=== PATIENT | male | born 1965 | race Hispanic/Latino ===

== ENCOUNTER 2017-08-15 20:17 | Emergency (ER) | payer SELFPAY ==
[2017-08-15 21:02] LABS: APPEARANCE,URINE Clear (CLEAR); BILIRUBIN,URINE Negative (NEGATIVE); COLOR,URINE Yellow (YELLOW); GLUCOSE, URINE (UA) Negative (NEGATIVE); KETONES,URINE Negative (NEGATIVE); LEUKOCYTE ESTERASE ,URINE Negative (NEGATIVE); NITRATE,URINE Negative (NEGATIVE); OCCULT BLOOD,URINE Negative (NEGATIVE); PROTEIN,URINE Negative (NEGATIVE)
[2017-08-15 21:03] LABS: BASOPHILS % (AUTO) 0.6 % (0.0-5.0); EOSINOPHILS % (AUTO) 2.3 % (0.0-8.0); HEMATOCRIT 43.4 % (42-54); LYMPHOCYTES % (AUTO) 46.4 % (21.0-51.0); MEAN CORPUSCULAR HEMOGLOBIN 30.3 pg (27.0-33.0); MEAN CORPUSCULAR HGB CONC 34.3 g/dL (32.0-36.0); MEAN CORPUSCULAR VOLUME 88.3 fL (79-99); MONOCYTES % (AUTO) 7.5 % (3.0-13.0); NEUTROPHILS % (AUTO) 43.2 % (40.0-77.0); NUCLEATED RED BLOOD CELLS 0.1 % (0.0-0.19); PLATELET COUNT (AUTO) 153 K/uL (130-400); RED BLOOD CELL COUNT(AUTO) 4.92 MIL/uL (4.50-6.20); RED CELL DISTRIBUTION WIDTH 13.6 % (11.0-15.5); WHITE BLOOD COUNT (AUTO) 8.2 K/uL (4.8-10.8)
[2017-08-15 21:10] LABS: AMPHET/METH SCREEN,URINE NEGATIVE (NEGATIVE); BARBITURATE SCREEN, URINE NEGATIVE (NEGATIVE); BENZODIAZEPINES SCREEN,URINE NEGATIVE (NEGATIVE); CANNABINOID SCREEN,URINE NEGATIVE (NEGATIVE); COCAINE SCREEN,URINE POSITIVE (NEGATIVE); OPIATE SCREEN,URINE NEGATIVE (NEGATIVE); PHENCYCLIDINE SCREEN,URINE NEGATIVE (NEGATIVE)
[2017-08-15 21:12] LABS: CARBON DIOXIDE 31 mmol/L (21-32); CHLORIDE 110 mmol/L (101-111); CREATININE 0.9 mg/dL (0.5-1.5); GLOMERULAR FILTR. RATE CALC 95 mL/min (>60); GLUCOSE,RANDOM 96 mg/dL (70-105); POTASSIUM 3.9 mmol/L (3.5-5.1); SODIUM SERUM 147 mmol/L (136-145); UREA NITROGEN, BLOOD 7 mg/dL (7-18)
[2017-08-15 21:17] LABS: ALANINE AMINOTRANSFERASE 265 U/L (12-78); ALBUMIN 3.4 g/dL (3.5-5.0); ASPARTATE AMINOTRANSFERASE 158 U/L (10-37); BILIRUBIN,TOTAL 0.5 mg/dL (0.2-1.0); SALICYLATE 2.9 mg/dL (2.8-20.0); TOTAL PROTEIN, SERUM 6.8 g/dL (6.0-8.3)
[2017-08-15 21:18] LABS: ACETAMINOPHEN < 1 mcg/mL (10-29)
== END 2017-08-15 21:40 | disposition home or self-care (01) ==
LOC: EDH 20:17
DX: F14.10 Cocaine abuse, uncomplicated (principal); F10.10 Alcohol abuse, uncomplicated; F41.9 Anxiety disorder, unspecified; F32.9 Major depressive disorder, single episode, unspecified; F20.9 Schizophrenia, unspecified; I10 Essential (primary) hypertension; E11.9 Type 2 diabetes mellitus without complications; Z86.19 Personal history of other infectious and parasitic diseases
CPT/HCPCS: 36415; 80053; 80305; 81003; 85025; 99284; G0480 ×2; G0481

== ENCOUNTER 2021-12-29 19:39 | Emergency (ER) | payer OTHER ==
[2021-12-29] MEDS ORDERED: 0.9%NACL 1000ML 1,000 ML IV ONE (20:37)
[2021-12-29 20:51] LABS: BASOPHILS % (AUTO) 0.6 % (0.0-5.0); EOSINOPHILS % (AUTO) 1.7 % (0.0-8.0); HEMATOCRIT 42.4 % (42-54); LYMPHOCYTES % (AUTO) 26.4 % (21.0-51.0); MEAN CORPUSCULAR HGB CONC 33.7 g/dL (32.0-36.0); MEAN CORPUSCULAR VOLUME 88.9 fL (79-99); MONOCYTES % (AUTO) 6.5 % (3.0-13.0); PLATELET COUNT (AUTO) 134 K/uL (130-400); RED BLOOD CELL COUNT(AUTO) 4.77 MIL/uL (4.50-6.20); RED CELL DISTRIBUTION WIDTH 13.3 % (11.0-15.5); WHITE BLOOD COUNT (AUTO) 7.3 K/uL (4.8-10.8)
[2021-12-29 20:53] LABS: APPEARANCE,URINE Clear (CLEAR); BILIRUBIN,URINE Negative (NEGATIVE); COLOR,URINE Yellow (YELLOW); GLUCOSE, URINE (UA) Negative (NEGATIVE); KETONES,URINE Negative (NEGATIVE); LEUKOCYTE ESTERASE ,URINE Negative (NEGATIVE); NITRATE,URINE Negative (NEGATIVE); OCCULT BLOOD,URINE Negative (NEGATIVE); PH,URINE 5.5 (5.0-8.0); PROTEIN,URINE Negative (NEGATIVE); UROBILINOGEN,URINE 0.2 mg/dL (0.2-1.0)
[2021-12-29 21:01] LABS: POTASSIUM 4.1 mmol/L (3.5-5.1)
[2021-12-29 21:03] LABS: INR 1.12 (0.85-1.15); PROTHROMBIN TIME 12.1 SEC (9.6-11.6)
[2021-12-29 21:04] LABS: PARTIAL THROMBOPLASTIN TIME 26.5 SEC (26.3-35.5)
[2021-12-29 21:06] LABS: ALBUMIN 3.4 g/dL (3.5-5.0); BILIRUBIN,TOTAL 0.5 mg/dL (0.2-1.0); TOTAL PROTEIN, SERUM 6.9 g/dL (6.0-8.3)
[2021-12-29] MEDS ORDERED: HYDROCODONE/ACETAMINOPHEN 10/325 MG TAB PO ONE (23:00)
[2021-12-29] MEDS ORDERED: KETOROLAC 15MG/ML VIAL (15MG/ML) IV ONE (23:00)
[2021-12-29] MEDS ORDERED: ACET-2079 PO (23:08)
[2021-12-29 23:28] VITALS: BP 110/65
== END 2021-12-29 23:31 | disposition home or self-care (01) ==
LOC: EDH 19:39
DX: S00.81XA Abrasion of other part of head, initial encounter (principal); M54.50 Low back pain, unspecified; F41.9 Anxiety disorder, unspecified; F17.200 Nicotine dependence, unspecified, uncomplicated; Y08.89XA Assault by other specified means, initial encounter; Y93.89 Activity, other specified; Y92.89 Other specified places as the place of occurrence of the external cause; Y99.8 Other external cause status
CPT/HCPCS: 36415; 72100; 80053; 81003; 85025; 85610; 85730; 96360; 96361; 99284; J7030; J1885

== ENCOUNTER 2022-02-28 15:58 | Emergency (ER) | payer OTHER ==
[~2022-02-28 15:58] MED LIST: ACET-2079 PO
[2022-02-28 17:49] LABS: BASOPHILS % (AUTO) 0.5 % (0.0-5.0); EOSINOPHILS % (AUTO) 1.9 % (0.0-8.0); HEMATOCRIT 40.7 % (42-54); LYMPHOCYTES % (AUTO) 24.6 % (21.0-51.0); MEAN CORPUSCULAR HGB CONC 34.4 g/dL (32.0-36.0); MEAN CORPUSCULAR VOLUME 87.3 fL (79-99); MONOCYTES % (AUTO) 9.7 % (3.0-13.0); NEUTROPHILS % (AUTO) 62.5 % (40.0-77.0); PLATELET COUNT (AUTO) 98 K/uL (130-400); RED BLOOD CELL COUNT(AUTO) 4.66 MIL/uL (4.50-6.20); RED CELL DISTRIBUTION WIDTH 13.3 % (11.0-15.5); WHITE BLOOD COUNT (AUTO) 7.4 K/uL (4.8-10.8)
[2022-02-28 18:00] LABS: CREATININE 1.1 mg/dL (0.5-1.5); POTASSIUM 4.1 mmol/L (3.5-5.1)
[2022-02-28 18:04] LABS: ALBUMIN 3.2 g/dL (3.5-5.0); TOTAL PROTEIN, SERUM 6.3 g/dL (6.0-8.3)
[2022-02-28 18:12] LABS: APPEARANCE,URINE CLEAR (CLEAR); BILIRUBIN,URINE NEGATIVE (NEGATIVE); COLOR,URINE YELLOW (YELLOW); GLUCOSE, URINE (UA) NEGATIVE (NEGATIVE); KETONES,URINE NEGATIVE (NEGATIVE); LEUKOCYTE ESTERASE ,URINE NEGATIVE (NEGATIVE); NITRATE,URINE NEGATIVE (NEGATIVE); OCCULT BLOOD,URINE NEGATIVE (NEGATIVE); PROTEIN,URINE NEGATIVE (NEGATIVE)
[2022-02-28] MEDS ORDERED: ACETAMINOPHEN 500 MG TABLET PO ONE (19:00)
[2022-02-28] MEDS ORDERED: SOLU-MEDROL 125MG VIAL IVP ONE (19:00)
[2022-02-28] MEDS ORDERED: ACET-66 PO (21:19)
[2022-02-28] MEDS ORDERED: PRED20TA3 PO (21:19)
[2022-02-28 21:25] VITALS: BP 116/63
== END 2022-02-28 21:34 | disposition home or self-care (01) ==
LOC: EDH 15:58
DX: M25.561 Pain in right knee (principal); M25.562 Pain in left knee; R21 Rash and other nonspecific skin eruption; F41.9 Anxiety disorder, unspecified; F32.A Depression, unspecified; F17.200 Nicotine dependence, unspecified, uncomplicated
CPT/HCPCS: 99284; 96374; 80053; 85025; 85651; 86140; 81003; 36415; 73562 ×2; J2930

== ENCOUNTER 2023-05-21 06:53 | Emergency (ER) | payer OTHER ==
[~2023-05-21] VITALS: Ht 172.7 cm; Wt 77.1 kg
[~2023-05-21 06:53] MED LIST changes: +ACET-66 PO; +PRED20TA3 PO
[2023-05-21 07:16] VITALS: BP 129/62; PULSE 74; RESP 18; O2SAT 98
[2023-05-21 07:45] LABS: BASOPHILS # (AUTO) 0.02 K/uL (0.00-0.20); BASOPHILS % (AUTO) 0.4 % (0.0-5.0); EOSINOPHILS # (AUTO) 0.11 K/uL (0.00-0.70); EOSINOPHILS % (AUTO) 2.5 % (0.0-8.0); HEMATOCRIT 44.5 % (42-54); IMMATURE GRANULOCYTE ABSOLUTE 0.03 K/uL (0-1); LYMPHOCYTES # (AUTO) 1.3 K/uL (1.0-4.8); LYMPHOCYTES % (AUTO) 28.6 % (21.0-51.0); MEAN CORPUSCULAR HEMOGLOBIN 30.9 pg (27.0-33.0); MEAN CORPUSCULAR HGB CONC 33.9 g/dL (32.0-36.0); MONOCYTES # (AUTO) 0.3 K/uL (0.1-1.0); MONOCYTES % (AUTO) 6.3 % (3.0-13.0); NEUTROPHILS # (AUTO) 2.8 K/uL (1.8-7.7); NEUTROPHILS % (AUTO) 61.5 % (40.0-77.0); PLATELET COUNT (AUTO) 90 K/uL (130-400); RED BLOOD CELL COUNT(AUTO) 4.89 MIL/uL (4.50-6.20); RED CELL DISTRIBUTION WIDTH 14.1 % (11.0-15.5); WHITE BLOOD COUNT (AUTO) 4.5 K/uL (4.8-10.8)
[2023-05-21] MEDS ORDERED: MORPHINE 4 MG SYG IVP ONE (08:00)
[2023-05-21] MEDS ORDERED: LACTATED RINGERS 1000ML 1,000 ML IV ONE (08:00)
[2023-05-21] MEDS ORDERED: ONDANSETRON 4MG INJ IVP ONE (08:00)
[2023-05-21 08:12] LABS: CREATININE 0.8 mg/dL (0.5-1.5); POTASSIUM 3.8 mmol/L (3.5-5.1)
[2023-05-21 08:17] LABS: ALBUMIN 2.8 g/dL (3.5-5.0); BILIRUBIN,TOTAL 1.7 mg/dL (0.2-1.0); TOTAL PROTEIN, SERUM 6.1 g/dL (6.0-8.3)
== END 2023-05-21 09:39 | disposition home or self-care (01) ==
LOC: EDH 06:53
DX: B19.20 Unspecified viral hepatitis C without hepatic coma (principal); R74.01 Elevation of levels of liver transaminase levels; F17.200 Nicotine dependence, unspecified, uncomplicated; Z79.899 Other long term (current) drug therapy; Z98.890 Other specified postprocedural states
CPT/HCPCS: 99284; 96374; 96361; 96375; 80053; 83690; 85025; 36415; J7120; J2405; J2270

== ENCOUNTER 2023-09-21 06:42 | Day surgery (SDC) | payer MEDICAID ==
[2023-09-19 15:41] LABS: BASOPHILS # (AUTO) 0.03 K/uL (0.00-0.20); BASOPHILS % (AUTO) 0.7 % (0.0-5.0); EOSINOPHILS # (AUTO) 0.16 K/uL (0.00-0.70); EOSINOPHILS % (AUTO) 3.5 % (0.0-8.0); HEMATOCRIT 39.7 % (42-54); IMMATURE GRANULOCYTE ABSOLUTE 0.02 K/uL (0-1); LYMPHOCYTES # (AUTO) 1.5 K/uL (1.0-4.8); LYMPHOCYTES % (AUTO) 32.7 % (21.0-51.0); MEAN CORPUSCULAR HEMOGLOBIN 30.3 pg (27.0-33.0); MEAN CORPUSCULAR VOLUME 91.9 fL (79-99); MONOCYTES # (AUTO) 0.4 K/uL (0.1-1.0); MONOCYTES % (AUTO) 7.7 % (3.0-13.0); NEUTROPHILS # (AUTO) 2.5 K/uL (1.8-7.7); PLATELET COUNT (AUTO) 92 K/uL (130-400); RED BLOOD CELL COUNT(AUTO) 4.32 MIL/uL (4.50-6.20); RED CELL DISTRIBUTION WIDTH 13.7 % (11.0-15.5); WHITE BLOOD COUNT (AUTO) 4.6 K/uL (4.8-10.8)
[2023-09-19 15:42] VITALS: BP 112/56; PULSE 73; RESP 18
[2023-09-21] VITALS (17 sets, daily range): BP systolic 100–128; BP diastolic 53–75; PULSE 59–82; RESP 12–18
[~2023-09-21] VITALS: Ht 172.7 cm; Wt 77.6 kg
[2023-09-21 08:15] LABS: CREATININE 0.6 mg/dL (0.5-1.3); POTASSIUM 3.8 mmol/L (3.5-5.1)
[2023-09-21 08:19] LABS: ALBUMIN 2.2 g/dL (3.5-5.0); BILIRUBIN,TOTAL 1.3 mg/dL (0.2-1.0); TOTAL PROTEIN, SERUM 5.5 g/dL (6.0-8.3)
[2023-09-21] MEDS ORDERED: DEXAMETHASONE SOD PHOSPHATE 4 MG/ML 1ML VIAL ONE (09:30)
[2023-09-21] MEDS ORDERED: LIDOCAINE PF 100MG/5ML (2%) SYRINGE 5ML ONE (09:30)
[2023-09-21] MEDS ORDERED: PROPOFOL 10 MG/ML 20ML VIAL IV ONE (09:31)
[2023-09-21] MEDS ORDERED: FENTANYL CITRATE PF 50 MCG/1 ML 2ML VIAL ONE (09:31)
[2023-09-21] MEDS ORDERED: ONDANSETRON 4MG INJ ONE (09:31)
[2023-09-21] MEDS ORDERED: ROCURONIUM BROMIDE 10MG/1ML 5ML VL ONE ×2 (09:31→10:08)
[2023-09-21] MEDS ORDERED: MIDAZOLAM HCL 1 MG/ML 2ML VIAL ONE (09:31)
[2023-09-21] MEDS: CEFAZOLIN SODIUM 2 GM VIAL ONE (09:40)
[2023-09-21] MEDS: BUPIVACAINE/PF 0.25% 30ML VIAL IJ ONE (09:56)
[2023-09-21] MEDS ORDERED: KETOROLAC 30MG VIAL (30MG/ML) ONE (10:43)
[2023-09-21] MEDS ORDERED: GLYCOPYRROLATE 0.2 MG/ML 5 ML VIAL ONE (10:44)
[2023-09-21] MEDS ORDERED: NEOSTIGMINE METHYLSULFATE 1MG/ML IV ONE (10:44)
[2023-09-21] MEDS: LACTATED RINGERS 1000ML 1,000 ML IV ONE (10:51)
[2023-09-21] MEDS: MEPERIDINE-PF 25 MG/ML SYG ONE (11:46)
[2023-09-21] MEDS: ONDANSETRON 4MG INJ ONE (11:46)
== END 2023-09-21 13:45 | disposition home or self-care (01) ==
LOC: DAH 06:42
PROVIDERS: ATTEND Surgery
DX: K40.90 Unilateral inguinal hernia, without obstruction or gangrene, not specified as recurrent (principal); R18.8 Other ascites; K74.69 Other cirrhosis of liver; Z79.899 Other long term (current) drug therapy; Z98.890 Other specified postprocedural states; Z87.891 Personal history of nicotine dependence; Z88.8 Allergy status to other drugs, medicaments and biological substances; Z80.9 Family history of malignant neoplasm, unspecified; Z86.19 Personal history of other infectious and parasitic diseases
CPT/HCPCS: 85025; 36415 ×2; 49650; 80053; 88302; A6260; J1100; A4663; J7030; A4452; A4344; A4215 ×2; J7120; J3010; J0665; J3490 ×3; J2001; J2250; J2704; J2405 ×2; J1885; J2710; J2175; J0690; A4930 ×2; C1781; A4223; A4213; A4222; A4221; A4600; S2900

== ENCOUNTER 2023-09-25 16:05 | Observation (INO) | payer BC, MEDICAID ==
[~2023-09-25] VITALS: Ht 172.7 cm; Wt 80.8 kg
[2023-09-25 16:34] LABS: BASOPHILS # (AUTO) 0.03 K/uL (0.00-0.20); BASOPHILS % (AUTO) 0.7 % (0.0-5.0); EOSINOPHILS # (AUTO) 0.13 K/uL (0.00-0.70); EOSINOPHILS % (AUTO) 3.1 % (0.0-8.0); HEMATOCRIT 39.2 % (42-54); IMMATURE GRANULOCYTE ABSOLUTE 0.03 K/uL (0-1); LYMPHOCYTES # (AUTO) 1.3 K/uL (1.0-4.8); LYMPHOCYTES % (AUTO) 29.9 % (21.0-51.0); MEAN CORPUSCULAR HEMOGLOBIN 30.9 pg (27.0-33.0); MEAN CORPUSCULAR HGB CONC 33.7 g/dL (32.0-36.0); MEAN CORPUSCULAR VOLUME 91.8 fL (79-99); MONOCYTES # (AUTO) 0.3 K/uL (0.1-1.0); MONOCYTES % (AUTO) 7.3 % (3.0-13.0); NEUTROPHILS # (AUTO) 2.5 K/uL (1.8-7.7); NEUTROPHILS % (AUTO) 58.3 % (40.0-77.0); PLATELET COUNT (AUTO) 92 K/uL (130-400); RED BLOOD CELL COUNT(AUTO) 4.27 MIL/uL (4.50-6.20); RED CELL DISTRIBUTION WIDTH 13.6 % (11.0-15.5); WHITE BLOOD COUNT (AUTO) 4.2 K/uL (4.8-10.8)
[2023-09-25] MEDS: MORPHINE 4 MG SYG IVP ONE (16:43)
[2023-09-25] MEDS: 0.9%NACL 1000ML 2,052 ML IV ONE (16:43)
[2023-09-25] MEDS: METOCLOPRAMIDE 10 MG/2 ML VIAL IVP ONE (16:43)
[2023-09-25 16:44] LABS: CREATININE 0.8 mg/dL (0.5-1.3); POTASSIUM 4.3 mmol/L (3.5-5.1)
[2023-09-25 16:51] LABS: ALBUMIN 2.6 g/dL (3.5-5.0); BILIRUBIN,TOTAL 1.3 mg/dL (0.2-1.0); TOTAL PROTEIN, SERUM 5.7 g/dL (6.0-8.3)
[2023-09-25 17:00] LABS: APPEARANCE,URINE CLEAR (CLEAR); BILIRUBIN,URINE NEGATIVE (NEGATIVE); COLOR,URINE YELLOW (YELLOW); GLUCOSE, URINE (UA) NEGATIVE (NEGATIVE); KETONES,URINE NEGATIVE (NEGATIVE); LEUKOCYTE ESTERASE ,URINE NEGATIVE Leu/uL (NEGATIVE); NITRATE,URINE NEGATIVE (NEGATIVE); OCCULT BLOOD,URINE NEGATIVE (NEGATIVE); PH,URINE 6.5 (5.0-8.0); PROTEIN,URINE NEGATIVE (NEGATIVE)
[2023-09-25 17:03] LABS: ADD UA MICROSCOPIC YES
[2023-09-25 17:04] LABS: MUCUS,URINE RARE LPF (None Seen)
[2023-09-25] MEDS ORDERED: IOHEXOL 350 MG/ML 100ML INFUS..BTL IV ONE (17:09)
[2023-09-25] MEDS: ZOSYN 3.375GM +NS 50ML IVPB ONE (21:24)
[2023-09-25] MEDS ORDERED: LACTULOSE 20 GM/30 ML UDCUP PO PRN (22:00)
[2023-09-25] MEDS ORDERED: ACETAMINOPHEN WITH CODEINE 1 TAB TAB PO PRN (22:00)
[2023-09-25] MEDS ORDERED: ONDANSETRON 4MG INJ IV PRN (22:00)
[2023-09-25] MEDS ORDERED: ALBUTEROL 0.083% 2.5 MG/3 ML INH IH PRN (22:00)
[2023-09-25] MEDS ORDERED: NITROGLYCERIN 0.4 MG SL TAB SL PRN (22:00)
[2023-09-25] MEDS ORDERED: ZOLPIDEM TARTRATE 5 MG TAB PO PRN (22:00)
[2023-09-25] MEDS ORDERED: KETOROLAC 15MG/ML VIAL (15MG/ML) IM PRN (22:00)
[2023-09-25] MEDS ORDERED: MAGNESIUM 2GM PREMIX 50ML 50 ML IV PRN (22:00)
[2023-09-25] MEDS ORDERED: ACETAMINOPHEN 325 MG TAB PO PRN ×3 (22:00)
[2023-09-25] MEDS ORDERED: GUAIFENESIN-DM 200/20 MG 10 ML PO PRN (22:00)
[2023-09-25] MEDS ORDERED: DiphenhydrAMINE HCL 50 MG/ML VIAL IV PRN (22:00)
[2023-09-25] MEDS ORDERED: MAG/ALUM/SIMETH 30 ML UDCUP PO PRN (22:00)
[2023-09-25] MEDS ORDERED: FAMOTIDINE 20MG VIAL IV PRN (22:00)
[2023-09-25] MEDS ORDERED: HYDRALAZINE 20MG/ML VIAL IV PRN (22:00)
[2023-09-25 22:13] LABS: ALBUMIN 2.4 g/dL (3.5-5.0); BILIRUBIN,DIRECT 0.7 mg/dL (0.0-0.3); BILIRUBIN,TOTAL 1.4 mg/dL (0.2-1.0); TOTAL PROTEIN, SERUM 5.4 g/dL (6.0-8.3)
[2023-09-25] MEDS: LACTATED RINGERS 1000ML 1,000 ML IV SCH (23:32)
[2023-09-26] MEDS ORDERED: POTASSIUM CHLORIDE 10% ELIXIR 20 MEQ/15 ML UDCUP PO PRN (00:30)
[2023-09-26] MEDS ORDERED: POTASSIUM CHLORIDE 20MEQ/100ML 100 ML IV PRN (00:30)
[2023-09-26] MEDS ORDERED: KCL 20 MEQ ERTAB PO PRN (00:30)
[2023-09-26] MEDS: ZOSYN 3.375GM+NS 50ML 50 ML IV SCH (04:49)
[2023-09-26 06:14] LABS: BASOPHILS # (AUTO) 0.03 K/uL (0.00-0.20); BASOPHILS % (AUTO) 0.8 % (0.0-5.0); EOSINOPHILS # (AUTO) 0.13 K/uL (0.00-0.70); EOSINOPHILS % (AUTO) 3.3 % (0.0-8.0); HEMATOCRIT 37.1 % (42-54); IMMATURE GRANULOCYTE ABSOLUTE 0.02 K/uL (0-1); LYMPHOCYTES # (AUTO) 1.4 K/uL (1.0-4.8); LYMPHOCYTES % (AUTO) 34.7 % (21.0-51.0); MEAN CORPUSCULAR HEMOGLOBIN 30.9 pg (27.0-33.0); MEAN CORPUSCULAR HGB CONC 34.2 g/dL (32.0-36.0); MEAN CORPUSCULAR VOLUME 90.3 fL (79-99); MONOCYTES # (AUTO) 0.3 K/uL (0.1-1.0); MONOCYTES % (AUTO) 7.5 % (3.0-13.0); NEUTROPHILS # (AUTO) 2.1 K/uL (1.8-7.7); NEUTROPHILS % (AUTO) 53.2 % (40.0-77.0); PLATELET COUNT (AUTO) 83 K/uL (130-400); RED BLOOD CELL COUNT(AUTO) 4.11 MIL/uL (4.50-6.20); RED CELL DISTRIBUTION WIDTH 13.7 % (11.0-15.5)
[2023-09-26 06:26] LABS: HEMOGLOBIN A1C 5.1 % (4.0-6.0)
[2023-09-26 06:32] LABS: INR 1.15 (0.85-1.15); PROTHROMBIN TIME 13.4 SEC (9.6-11.6)
[2023-09-26 06:33] LABS: PARTIAL THROMBOPLASTIN TIME 30.8 SEC (26.3-35.5)
[2023-09-26 06:36] LABS: ALBUMIN 2.3 g/dL (3.5-5.0); BILIRUBIN,DIRECT 0.9 mg/dL (0.0-0.3); BILIRUBIN,TOTAL 1.8 mg/dL (0.2-1.0); CREATININE 0.8 mg/dL (0.5-1.3); MAGNESIUM 1.7 mg/dL (1.80-2.40); POTASSIUM 4.5 mmol/L (3.5-5.1); TOTAL PROTEIN, SERUM 5.3 g/dL (6.0-8.3)
[2023-09-26] MEDS ORDERED: INSULIN HUMULIN R 100 UNIT/ML 3ML SQ SCH (07:30)
[2023-09-26] MEDS: INSULIN HUMULIN R 100 UNIT/ML 3ML SQ SCH (07:30)
[2023-09-26] MEDS: FAMOTIDINE 20MG VIAL IV SCH (08:11)
[2023-09-26] MEDS: HEPARIN 5,000 UNIT VIAL SQ SCH (08:12)
[2023-09-26] MEDS: MAGNESIUM 2GM PREMIX 50ML 50 ML IV PRN (11:55)
[2023-09-26 20:00] VITALS: BP 127/78; PULSE 68; RESP 17
[2023-09-26] MEDS: MORPHINE 2 MG SYG IVP PRN (20:08)
[2023-09-26 21:25] VITALS: BP 141/86; PULSE 67; RESP 20
[2023-09-26 23:03] VITALS: O2SAT 99
[2023-09-26 23:12] VITALS: BP 138/79; PULSE 65; RESP 18
[2023-09-27 03:38] VITALS: BP 121/75; PULSE 63; RESP 18
[2023-09-27 07:59] LABS: BASOPHILS # (AUTO) 0.04 K/uL (0.00-0.20); EOSINOPHILS # (AUTO) 0.13 K/uL (0.00-0.70); EOSINOPHILS % (AUTO) 3.1 % (0.0-8.0); HEMATOCRIT 38.9 % (42-54); IMMATURE GRANULOCYTE ABSOLUTE 0.02 K/uL (0-1); LYMPHOCYTES # (AUTO) 1.5 K/uL (1.0-4.8); LYMPHOCYTES % (AUTO) 35.5 % (21.0-51.0); MEAN CORPUSCULAR HEMOGLOBIN 30.8 pg (27.0-33.0); MEAN CORPUSCULAR HGB CONC 33.9 g/dL (32.0-36.0); MEAN CORPUSCULAR VOLUME 90.9 fL (79-99); MONOCYTES # (AUTO) 0.4 K/uL (0.1-1.0); MONOCYTES % (AUTO) 9.8 % (3.0-13.0); NEUTROPHILS # (AUTO) 2.1 K/uL (1.8-7.7); NEUTROPHILS % (AUTO) 50.1 % (40.0-77.0); PLATELET COUNT (AUTO) 86 K/uL (130-400); RED BLOOD CELL COUNT(AUTO) 4.28 MIL/uL (4.50-6.20); RED CELL DISTRIBUTION WIDTH 13.7 % (11.0-15.5); WHITE BLOOD COUNT (AUTO) 4.2 K/uL (4.8-10.8)
[2023-09-27 08:00] VITALS: BP 117/69; PULSE 61; RESP 18
[2023-09-27 08:13] LABS: CREATININE 0.9 mg/dL (0.5-1.3); POTASSIUM 4.4 mmol/L (3.5-5.1)
[2023-09-27 08:18] LABS: ALBUMIN 2.2 g/dL (3.5-5.0); BILIRUBIN,TOTAL 1.6 mg/dL (0.2-1.0); MAGNESIUM 1.9 mg/dL (1.80-2.40); TOTAL PROTEIN, SERUM 5.3 g/dL (6.0-8.3)
[2023-09-27 08:30] VITALS: O2SAT 98
[2023-09-27 11:59] VITALS: BP 113/68; PULSE 63; RESP 18
[2023-09-27] MEDS ORDERED: MAGNESIUM 2GM PREMIX 50ML 50 ML IV PRN (12:30)
[2023-09-27 16:00] VITALS: BP 134/79; PULSE 65; RESP 18
[2023-10-12] MEDS ORDERED: DOCU-116 PO (22:47)
[2023-10-12] MEDS ORDERED: ONDA-104 PO (22:49)
[2023-10-12] MEDS ORDERED: OMEP40CA21 PO (22:49)
== END 2023-09-27 19:50 | disposition home or self-care (01) ==
LOC: EDH 16:05 → EDHIP 16:06 → UNDOADMOB 21:38 → EDHIP 21:38 → 3BH 09-26 21:07
PROVIDERS: ADMIT Hospitalist; ATTEND Hospitalist
DX: N43.3 Hydrocele, unspecified (principal); N50.89 Other specified disorders of the male genital organs; K40.90 Unilateral inguinal hernia, without obstruction or gangrene, not specified as recurrent; R16.2 Hepatomegaly with splenomegaly, not elsewhere classified; K63.89 Other specified diseases of intestine; K74.60 Unspecified cirrhosis of liver; R91.8 Other nonspecific abnormal finding of lung field; I10 Essential (primary) hypertension; D64.9 Anemia, unspecified; D61.818 Other pancytopenia; D69.59 Other secondary thrombocytopenia; E43 Unspecified severe protein-calorie malnutrition; F10.20 Alcohol dependence, uncomplicated; K85.90 Acute pancreatitis without necrosis or infection, unspecified; Q33.3 Agenesis of lung; F17.200 Nicotine dependence, unspecified, uncomplicated; Z79.899 Other long term (current) drug therapy
CPT/HCPCS: 96361; 96365; 96366 ×3; 96375 ×2; 99285; 84484; 80053 ×2; 83690; 85025 ×3; 85378; 87088; 81001; 36415 ×3; 71045; 74178; 76870; 93005; 94664; 96376 ×2; 96367; 83036; 82550; 80076; 83735 ×2; 80048; 83880; 82140; 85610; 85730; 82948 ×6; 83605; 78582; 84145; 96372; 97161; 97116; G0378 ×43; J7120; J7030; J2270 ×2; J2543 ×6; J2765; Q9967; J3475; J3490 ×3; J1644 ×3; A9540; A9558

== ENCOUNTER 2024-02-11 07:36 | Day surgery (SDC) | payer MEDICAID ==
[2024-02-07 09:52] LABS: BASOPHILS # (AUTO) 0.03 K/uL (0.00-0.20); BASOPHILS % (AUTO) 0.7 % (0.0-5.0); EOSINOPHILS # (AUTO) 0.17 K/uL (0.00-0.70); EOSINOPHILS % (AUTO) 4.1 % (0.0-8.0); HEMATOCRIT 39.2 % (42-54); IMMATURE GRANULOCYTE ABSOLUTE 0.01 K/uL (0-1); LYMPHOCYTES # (AUTO) 1.3 K/uL (1.0-4.8); LYMPHOCYTES % (AUTO) 31.6 % (21.0-51.0); MEAN CORPUSCULAR HEMOGLOBIN 30.6 pg (27.0-33.0); MEAN CORPUSCULAR HGB CONC 33.2 g/dL (32.0-36.0); MEAN CORPUSCULAR VOLUME 92.2 fL (79-99); MONOCYTES # (AUTO) 0.3 K/uL (0.1-1.0); NEUTROPHILS # (AUTO) 2.3 K/uL (1.8-7.7); NEUTROPHILS % (AUTO) 56.4 % (40.0-77.0); PLATELET COUNT (AUTO) 83 K/uL (130-400); RED BLOOD CELL COUNT(AUTO) 4.25 MIL/uL (4.50-6.20); RED CELL DISTRIBUTION WIDTH 14.6 % (11.0-15.5); WHITE BLOOD COUNT (AUTO) 4.1 K/uL (4.8-10.8)
[2024-02-07 09:59] LABS: CREATININE 0.9 mg/dL (0.5-1.3); POTASSIUM 4.8 mmol/L (3.5-5.1)
[2024-02-07 10:01] LABS: INR 1.23 (0.85-1.15); PROTHROMBIN TIME 13.1 SEC (9.6-11.6)
[2024-02-07 10:18] VITALS: BP 112/59; PULSE 59; RESP 16
[~2024-02-11] VITALS: Ht 172.7 cm; Wt 71.2 kg
[2024-02-11] MEDS: ceFAZolin SODIUM 2 GM VIAL ONE
[2024-02-11] MEDS: 0.9%NACL 1000ML 1,000 ML IV ONE
[~2024-02-11 07:36] MED LIST changes: -ACET-2079 PO; -ACET-66 PO; +ONDA-104 PO; -PRED20TA3 PO
[2024-02-11] MEDS ORDERED: BUPIvacaine/PF 0.25% 30ML VIAL IJ ONE (08:07)
[2024-02-11] MEDS ORDERED: BUPIvacaine/PF 0.5% 30ML VIAL ONE (08:07)
[2024-02-11 08:15] VITALS: BP 114/57; PULSE 89; RESP 16
[2024-02-11] MEDS ORDERED: proPOFol 10 MG/ML 20ML VIAL IV ONE ×2 (09:02→09:42)
[2024-02-11] MEDS ORDERED: LIDOCAINE PF 100MG/5ML (2%) SYRINGE 5ML ONE ×2 (09:02→09:41)
[2024-02-11] MEDS ORDERED: rocuRONium bROMide 10MG/1ML 5ML VL ONE ×2 (09:25→09:42)
[2024-02-11] MEDS ORDERED: FAMOTIDINE 20MG VIAL IV ONE (09:39)
[2024-02-11] MEDS ORDERED: FENTanyl CITRate PF 50 MCG/1 ML 2ML VIAL ONE (09:43)
[2024-02-11] MEDS ORDERED: MIDAZOLAM HCL 1 MG/ML 2ML VIAL ONE (09:44)
[2024-02-11] MEDS ORDERED: KETAMINE 50MG/ML SYRINGE 50 MG/ML DISP.SYRIN ONE (09:46)
[2024-02-11] MEDS ORDERED: MULT-1203 PO (10:37)
[2024-02-11 12:16] LABS: APPEARANCE,URINE TURBID (CLEAR); BILIRUBIN,URINE NEGATIVE (NEGATIVE); COLOR,URINE YELLOW (YELLOW); GLUCOSE, URINE (UA) NEGATIVE (NEGATIVE); KETONES,URINE NEGATIVE (NEGATIVE); LEUKOCYTE ESTERASE ,URINE NEGATIVE Leu/uL (NEGATIVE); NITRATE,URINE NEGATIVE (NEGATIVE); OCCULT BLOOD,URINE NEGATIVE (NEGATIVE); PH,URINE 5.5 (5.0-8.0); PROTEIN,URINE 20 mg/dL (NEGATIVE); UROBILINOGEN,URINE 3 mg/dL (0.2-1.0)
[2024-02-11 12:24] LABS: ADD UA MICROSCOPIC YES
[2024-02-11 12:28] LABS: AMPHET/METH SCREEN,URINE POSITIVE (NEGATIVE); BARBITURATE SCREEN, URINE NEGATIVE (NEGATIVE); BENZODIAZEPINES SCREEN,URINE NEGATIVE (NEGATIVE); CANNABINOID SCREEN,URINE NEGATIVE (NEGATIVE); COCAINE SCREEN,URINE POSITIVE (NEGATIVE); OPIATE SCREEN,URINE NEGATIVE (NEGATIVE); PHENCYCLIDINE SCREEN,URINE NEGATIVE (NEGATIVE)
[2024-02-11 12:32] LABS: MUCUS,URINE MANY LPF (None Seen)
== END 2024-02-11 13:05 | disposition home or self-care (01) ==
LOC: DAH 07:36
PROVIDERS: ATTEND Surgery
DX: K42.9 Umbilical hernia without obstruction or gangrene (principal); F17.210 Nicotine dependence, cigarettes, uncomplicated; E11.9 Type 2 diabetes mellitus without complications; Z79.899 Other long term (current) drug therapy; Z98.890 Other specified postprocedural states; Z53.8 Procedure and treatment not carried out for other reasons
CPT/HCPCS: 36415 ×2; 80048; 85025; 85610; 80305; 82948; 81001; A6260; J3490 ×3; J3010; J7030; J2001 ×2; J2704 ×2; A4215; A4223; A4213; A4222; A4221; A4663; A4600; J2250; J0665; J0690

== ENCOUNTER 2024-03-17 06:28 | Observation (INO) | payer MEDICAID ==
[2024-03-13 10:28] VITALS: BP 125/64; PULSE 70; RESP 16; TEMP 97.9
[2024-03-13 10:44] LABS: BASOPHILS # (AUTO) 0.03 K/uL (0.00-0.20); BASOPHILS % (AUTO) 0.8 % (0.0-5.0); EOSINOPHILS # (AUTO) 0.15 K/uL (0.00-0.70); HEMATOCRIT 37.5 % (42-54); IMMATURE GRANULOCYTE ABSOLUTE 0.02 K/uL (0-1); LYMPHOCYTES # (AUTO) 1.2 K/uL (1.0-4.8); LYMPHOCYTES % (AUTO) 31.6 % (21.0-51.0); MEAN CORPUSCULAR HEMOGLOBIN 30.5 pg (27.0-33.0); MEAN CORPUSCULAR HGB CONC 32.8 g/dL (32.0-36.0); MEAN CORPUSCULAR VOLUME 93.1 fL (79-99); MONOCYTES # (AUTO) 0.3 K/uL (0.1-1.0); MONOCYTES % (AUTO) 8.2 % (3.0-13.0); NEUTROPHILS # (AUTO) 2.1 K/uL (1.8-7.7); NEUTROPHILS % (AUTO) 54.9 % (40.0-77.0); PLATELET COUNT (AUTO) 83 K/uL (130-400); RED BLOOD CELL COUNT(AUTO) 4.03 MIL/uL (4.50-6.20); RED CELL DISTRIBUTION WIDTH 14.7 % (11.0-15.5); WHITE BLOOD COUNT (AUTO) 3.8 K/uL (4.8-10.8)
[2024-03-13 10:49] LABS: CREATININE 0.8 mg/dL (0.5-1.3); POTASSIUM 3.7 mmol/L (3.5-5.1)
[2024-03-13 11:34] LABS: INR 1.27 (0.85-1.15); PROTHROMBIN TIME 13.5 SEC (9.6-11.6)
[2024-03-13 11:35] LABS: PARTIAL THROMBOPLASTIN TIME 28.5 SEC (26.3-35.5)
[2024-03-17] VITALS (27 sets, daily range): BP systolic 96–123; BP diastolic 46–84; PULSE 60–69; RESP 13–18; TEMP 97.1–97.9; O2SAT 96–97
[~2024-03-17] VITALS: Ht 172.7 cm; Wt 69.7 kg
[~2024-03-17 06:28] MED LIST changes: +0.9%NACL 1000ML 1,000 ML IV SCH; -ONDA-104 PO; +ceFAZolin SODIUM 2 GM VIAL IVPB PRN
[2024-03-17] MEDS ORDERED: proPOFol 10 MG/ML 20ML VIAL IV ONE (07:53)
[2024-03-17] MEDS ORDERED: MIDAZOLAM HCL 1 MG/ML 2ML VIAL ONE (07:54)
[2024-03-17] MEDS ORDERED: rocuRONium bROMide 10MG/1ML 5ML VL ONE (07:54)
[2024-03-17] MEDS ORDERED: FENTanyl CITRate PF 50 MCG/1 ML 2ML VIAL ONE ×2 (07:54→10:29)
[2024-03-17] MEDS ORDERED: ROPivacaine 0.5% 5MG/ML 30ML ONE (08:10)
[2024-03-17] MEDS ORDERED: LIDOCAINE 2%-EPI 1:200,000 20 ML VIAL IJ ONE (08:10)
[2024-03-17] MEDS ORDERED: dexaMETHasone SOD PHOSPHATE 10MG/ML 1ML VIAL ONE (08:11)
[2024-03-17] MEDS ORDERED: ondanSETRON 4MG INJ ONE (08:17)
[2024-03-17] MEDS: ceFAZolin SODIUM 2 GM VIAL ONE (08:21)
[2024-03-17] MEDS: LACTATED RINGERS 1000ML 1,000 ML IV ONE (08:22)
[2024-03-17] MEDS ORDERED: ketOROlac 30MG VIAL (30MG/ML) ONE (10:22)
[2024-03-17] MEDS ORDERED: GLYCOPYRROLATE 0.2 MG/ML 5 ML VIAL ONE (10:24)
[2024-03-17] MEDS ORDERED: NEOSTIGMINE METHYLSULFATE 1MG/ML IV ONE (10:24)
[2024-03-17] MEDS ORDERED: ondanSETRON 4MG INJ IVP PRN (13:30)
[2024-03-17] MEDS: 0.9%NACL 1000ML 1,000 ML IV SCH (13:30)
[2024-03-17] MEDS: morPHINE 2 MG SYG IVP PRN (23:07)
[2024-03-18 04:00] VITALS: BP 119/63; PULSE 56; RESP 17; TEMP 97.6
[2024-03-18 06:10] LABS: BASOPHILS # (AUTO) 0.01 K/uL (0.00-0.20); BASOPHILS % (AUTO) 0.2 % (0.0-5.0); EOSINOPHILS # (AUTO) 0.01 K/uL (0.00-0.70); EOSINOPHILS % (AUTO) 0.2 % (0.0-8.0); HEMATOCRIT 35.3 % (42-54); IMMATURE GRANULOCYTE ABSOLUTE 0.03 K/uL (0-1); LYMPHOCYTES % (AUTO) 20.4 % (21.0-51.0); MEAN CORPUSCULAR HEMOGLOBIN 30.3 pg (27.0-33.0); MEAN CORPUSCULAR HGB CONC 33.4 g/dL (32.0-36.0); MEAN CORPUSCULAR VOLUME 90.7 fL (79-99); MONOCYTES # (AUTO) 0.3 K/uL (0.1-1.0); MONOCYTES % (AUTO) 6.7 % (3.0-13.0); NEUTROPHILS # (AUTO) 3.6 K/uL (1.8-7.7); NEUTROPHILS % (AUTO) 71.9 % (40.0-77.0); PLATELET COUNT (AUTO) 83 K/uL (130-400); RED BLOOD CELL COUNT(AUTO) 3.89 MIL/uL (4.50-6.20); RED CELL DISTRIBUTION WIDTH 14.4 % (11.0-15.5)
[2024-03-18 06:37] LABS: CREATININE 0.8 mg/dL (0.5-1.3); POTASSIUM 4.5 mmol/L (3.5-5.1)
[2024-03-18 08:00] VITALS: BP 118/63; PULSE 69; RESP 19; TEMP 98.4; O2SAT 97
[2024-03-18 12:52] VITALS: BP 106/56; PULSE 69; RESP 16; TEMP 98.6
[2024-03-18] MEDS: acetaMINOPHEN 325 MG TAB PO PRN (14:46)
[2024-03-18 16:00] VITALS: BP 113/68; PULSE 60; RESP 18; TEMP 98.1
== END 2024-03-18 18:28 | disposition home or self-care (01) ==
LOC: DAH 06:28 → DAHIP 06:29 → DAH 06:29 → 3CH 11:50
PROVIDERS: ADMIT Surgery; ATTEND Surgery
DX: K42.9 Umbilical hernia without obstruction or gangrene (principal); R18.8 Other ascites; Z86.2 Personal history of diseases of the blood and blood-forming organs and certain disorders involving the immune mechanism; Z79.899 Other long term (current) drug therapy
CPT/HCPCS: 80048 ×2; 85025 ×2; 85610; 85730; 36415 ×2; 49591; 96374; 88302; 97161; 97116; 96376; A6260; G0378 ×26; A4663; A4452; J7120; J3010 ×2; J1100; J2270 ×2; J3490 ×3; J2250; J2704; J2405; J1885; J2710; J2795; J0690; A4930; A5120; A4215; A4223; A4222; A4221; A4600; G8980-CI; G8983-CI

== ENCOUNTER → 2024-06-13 | Outpatient (CLI) | payer MEDICAID ==
[~2024-06-13] MED LIST changes: -0.9%NACL 1000ML 1,000 ML IV SCH; +IOHEXOL 350 MG/ML 100ML INFUS..BTL IV ONE; -ceFAZolin SODIUM 2 GM VIAL IVPB PRN
--- NOTE | 2024-06-13 14:03 | HMCIMG ---
CT ABDOMEN/PELVIS W/WO CONTRAS HISTORY: Abdominal pain COMPARISON: None TECHNIQUE: Multiple sequential axial images of the abdomen and pelvis were obtained from the dome of the diaphragm through symphysis pubis. Patient was not given contrast through intravenous route. Oral contrast was not given. FINDINGS: No pleural effusion is seen bilaterally. There is no evidence of parenchymal disease or pulmonary nodule of the visualized lower lungs. Degenerative changes of the thoracolumbar spine are present. The heart is not enlarged. Cirrhotic changes of the liver are noted. Spleen is enlarged measuring 22 cm. There are abdominal varices. There is gallbladder distention. There is periumbilical hernia with fluid content. Nonspecific small bowel and colon wall thickening is seen. There is right inguinal hernia with fluid content. The liver, spleen, adrenal glands and pancreas are unremarkable. There is no evidence of hydronephrosis bilaterally. No evidence of renal stone is seen. Fecal material is seen in the colon. There are normal size retroperitoneal and mesenteric lymph nodes. A small ascites is seen. Atherosclerotic changes are present. Pelvic sidewalls are symmetric bilaterally. Bladder is well distended without wall thickening. IMPRESSION: 1. Cirrhotic liver with enlarged spleen and abdominal varices with small ascites. Gallbladder distention. There are periumbilical hernia and right inguinal hernia with fluid content. Minimal anasarca is also seen. CT was performed with one or more following dose reduction techniques: automated exposure control, adjustment of the mA and kv according to patient's size, or use of a iterative reconstruction technique.
== END | disposition home or self-care (01) ==
LOC: RAH 11:26
PROVIDERS: ATTEND Surgery
DX: K40.90 Unilateral inguinal hernia, without obstruction or gangrene, not specified as recurrent (principal); R10.9 Unspecified abdominal pain; K74.60 Unspecified cirrhosis of liver; K82.8 Other specified diseases of gallbladder; K42.9 Umbilical hernia without obstruction or gangrene
CPT/HCPCS: 74178; Q9967

== ENCOUNTER 2024-08-11 12:07 | Emergency (ER) | payer MEDICAID, OTHER ==
[~2024-08-11] VITALS: Ht 172.7 cm; Wt 74.8 kg
--- NOTE | 2024-08-11 12:42 | ERN ---
General Chief Complaint: Abdominal Pain Stated Complaint: HERNIAS Time Seen by MD: 12:13 Time Seen by Midlevel: 12:13 Source: patient History of Present Illness Initial Comments 59 y/o male presents to the emergency department due to abdominal pain. Patient reports abdominal hernias x3 months there are no worsening. Patient reports he had surgery performed three months ago by Dr. Shah. Reports difficulty having bowel movement but denies further associated symptoms. Allergies: Coded Allergies: No Known Drug Allergies (Unverified Allergy, Unknown, 12/29/21) Home Meds No Active Prescriptions or Reported Meds Past Medical History Past Medical History: Liver Disease, Other Medical History Other: HEPATITIS C, HERNIA, CHRONIC BACK PAIN Past Surgical History: Other Surgical History Other: RUE TENDON REPAIR, HERNIA Social History Social History: Smokers, ETOH ROS Dictation Constitutional: Negative for fever,chills, and weight loss Eyes: Negative for injury, pain,redness, and discharge ENT: Negative for injury,pain or swelling Cardiovascular: Negative for chest pain, palpitations, and edema Respiratory: Negative for shortness of breath, cough, and wheezing, Abdomen/GI: Positive for abdominal pain Negative for nausea, vomiting, diarrhea, and constipation Back: Negative for injury and pain : Negative for painful urination, bleeding or discharge MS/Extremity: Negative for injury and deformity Skin: Negative for rash, and discoloration Neuro: Negative for headache, weakness, numbness, tingling, and seizure Psych: Negative for suicide ideation, homicidal ideation, and hallucinations Results Laboratory and Microbiology Lab and Micro Result Laboratory Tests Test 08/11/24 12:28 08/11/24 16:43 White Blood Count 4.2 K/uL (4.8-10.8) L Red Blood Count 4.52 MIL/uL (4.50-6.20) Hemoglobin 14.0 g/dL (14.0-18.0) Hematocrit 41.2 % (42-54) L Mean Corpuscular Volume 91.2 fL (79-99) Mean Corpuscular Hemoglobin 31.0 pg (27.0-33.0) Mean Corpuscular Hemoglobin Concent 34.0 g/dL (32.0-36.0) Red Cell Distribution Width 14.8 % (11.0-15.5) Platelet Count 97 K/uL (130-400) L Mean Platelet Volume 10.3 fL (7.5-10.5) Immature Granulocyte % (Auto) 0.5 % (0-1) Neutrophils (%) (Auto) 61.1 % (40.0-77.0) Lymphocytes (%) (Auto) 27.6 % (21.0-51.0) Monocytes (%) (Auto) 7.0 % (3.0-13.0) Eosinophils (%) (Auto) 3.1 % (0.0-8.0) Basophils (%) (Auto) 0.7 % (0.0-5.0) Neutrophils # (Auto) 2.5 K/uL (1.8-7.7) Lymphocytes # (Auto) 1.2 K/uL (1.0-4.8) Monocytes # (Auto) 0.3 K/uL (0.1-1.0) Eosinophils # (Auto) 0.13 K/uL (0.00-0.70) Basophils # (Auto) 0.03 K/uL (0.00-0.20) Absolute Immature Granulocyte (auto 0.02 K/uL (0-1) Nucleated Red Blood Cells 0.0 % (0.0-0.19) Sodium Level 140 mmol/L (136-145) Potassium Level 3.9 mmol/L (3.5-5.1) Chloride Level 105 mmol/L (101-111) Carbon Dioxide Level 32 mmol/L (21-32) Blood Urea Nitrogen 9 mg/dL (7-18) Creatinine 0.7 mg/dL (0.5-1.3) Glomerular Filtration Rate Calc 107 mL/min (>90) Random Glucose 100 mg/dL (70-105) Total Calcium 8.2 mg/dL (8.5-10.1) L Total Bilirubin 2.3 mg/dL (0.2-1.0) H Aspartate Amino Transf (AST/SGOT) 323 U/L (10-37) H Alanine Aminotransferase (ALT/SGPT) 277 U/L (12-78) H Alkaline Phosphatase 295 U/L (50-136) H Total Protein 6.5 g/dL (6.0-8.3) Albumin 2.8 g/dL (3.5-5.0) L Lipase 215 U/L (16-77) H Urine Color YELLOW (YELLOW) Urine Appearance CLEAR (CLEAR) Urine pH 7.0 (5.0-8.0) Urine Specific [place] OVER (1.001-1.031) Urine Protein 50 mg/dL (NEGATIVE) H Urine Glucose (UA) NEGATIVE mg/dL (NEGATIVE) Urine Ketones NEGATIVE mg/dL (NEGATIVE) Urine Occult Blood NEGATIVE (NEGATIVE) Urine Nitrate NEGATIVE (NEGATIVE) Urine Bilirubin NEGATIVE mg/dL (NEGATIVE) Urine Urobilinogen 4.0 mg/dL (0.2-1.0) H Urine Leukocyte Esterase NEGATIVE Arely/uL Urine RBC 2-5 /HPF (0-1) H Urine WBC 0-1 /HPF (0-1) Urine Bacteria None /HPF (None Seen) ED Course Orders Procedure Category Date Status Time Cbc With Differential LAB 08/11/24 Complete 12:13 Comprehensive LAB 08/11/24 Complete Metabolic Panel 12:13 Urinalysis LAB 08/11/24 Complete W/Microscopic 12:13 Lipase LAB 08/11/24 Complete 12:13 Ct Abdomen/Pelvis CT 08/11/24 Resulted W/Contrast 12:25 Ketorolac PHA 08/11/24 Complete Tromethamine 15mg/Ml 13:00 Iohexol (Omnipaque) PHA 08/11/24 Complete 16:00 Current Medications Medications (Trade) Dose Ordered Sig/Padmaja Route PRN Reason Start Time Stop Time Status Last Admin Dose Admin Iohexol (Omnipaque) 35,000 mg STK-MED ONCE IV 08/11/24 16:00 08/11/24 16:01 DC Ketorolac Tromethamine (toRADol) 15 mg ONCE ONCE IM 08/11/24 13:00 08/11/24 13:01 DC 08/11/24 15:49 Vital Signs Date Time Temp Pulse Resp B/P (MAP) Pulse Ox O2 Delivery O2 Flow Rate FiO2 08/11/24 15:40 98.1 65 16 130/75 98 Room Air* 0 21 08/11/24 12:13 98.1 65 16 135/80 98 Room Air DX & DISP Disposition: Discharge Departure Impression: Primary Impression: Abdominal hernia Additional Impression: Constipation Condition: Stable Assign Patient to: Discharge home. Rest. Follow up with primary care in 24 hours. Return to the ER for any acute changes or worsening symptoms. If any medications were prescribed take as directed. Okay to continue home medications unless otherwise discussed during your visit in the emergency room today. Patient was also advised to follow-up with primary care physician in 1 to 2 days for continued monitoring. Scripts Polyethylene Glycol 3350 (Miralax) 17 Gram Powd.pack 17 GM PO DAILY for constipation for 7 Days, #7 PACKET 0 Refills Prov: JASKARAN DIOR 08/11/24 Additional Instructions: Discharge home. Rest. Follow up with primary care DrJalen in 24 hours. Return to the ER for any acute changes or worsening symptoms. If any medications were prescribed take as directed. Okay to continue home medications unless otherwise discussed during your visit in the emergency room today. Patient was also advised to follow-up with primary care physician in 1 to 2 days for continued monitoring. Referrals: CRISTOBAL SOARES MD (PCP) I participated in the following activities of this patient's care: For this patient encounter, I reviewed the PA or RV B[employer] MECH[employer]IC documentation, treatment plan, and medical decision making. I did not have [id number] time with this patient. I will sign as the reviewing DrJalen And agree with the treatment plan and disposition. JASKARAN DIOR Aug 11, 2024 12:42
[2024-08-11 12:44] LABS: BASOPHILS # (AUTO) 0.03 K/uL (0.00-0.20); BASOPHILS % (AUTO) 0.7 % (0.0-5.0); EOSINOPHILS # (AUTO) 0.13 K/uL (0.00-0.70); EOSINOPHILS % (AUTO) 3.1 % (0.0-8.0); HEMATOCRIT 41.2 % (42-54); IMMATURE GRANULOCYTE ABSOLUTE 0.02 K/uL (0-1); LYMPHOCYTES # (AUTO) 1.2 K/uL (1.0-4.8); LYMPHOCYTES % (AUTO) 27.6 % (21.0-51.0); MEAN CORPUSCULAR VOLUME 91.2 fL (79-99); MONOCYTES # (AUTO) 0.3 K/uL (0.1-1.0); NEUTROPHILS # (AUTO) 2.5 K/uL (1.8-7.7); NEUTROPHILS % (AUTO) 61.1 % (40.0-77.0); PLATELET COUNT (AUTO) 97 K/uL (130-400); RED BLOOD CELL COUNT(AUTO) 4.52 MIL/uL (4.50-6.20); RED CELL DISTRIBUTION WIDTH 14.8 % (11.0-15.5); WHITE BLOOD COUNT (AUTO) 4.2 K/uL (4.8-10.8)
[2024-08-11 13:38] LABS: CREATININE 0.7 mg/dL (0.5-1.3); POTASSIUM 3.9 mmol/L (3.5-5.1)
[2024-08-11 13:40] LABS: ALBUMIN 2.8 g/dL (3.5-5.0); BILIRUBIN,TOTAL 2.3 mg/dL (0.2-1.0); TOTAL PROTEIN, SERUM 6.5 g/dL (6.0-8.3)
[2024-08-11] MEDS: ketOROlac 15MG/ML VIAL (15MG/ML) IM ONE (15:49)
[2024-08-11] MEDS ORDERED: IOHEXOL 350 MG/ML 100ML INFUS..BTL IV ONE (16:00)
--- NOTE | 2024-08-11 16:27 | HMCIMG ---
CT ABDOMEN/PELVIS W/CONTRAST REASON: Abdominal pain, hernia COMPARISON: 06/13/2024 FINDINGS: Lung bases are clear. There is nodular hepatic surface contour. There is a small hemangioma in the left lobe of the liver, unchanged. There is splenomegaly. There are varices in the splenic hilum. There is a small amount of ascites. These findings are consistent with cirrhosis.. There are normal-appearing kidneys.. Pancreas appears unremarkable. The gallbladder appears normal as well. Bowel loops appear unremarkable. This includes normal appearance of the appendix There is no evidence of free fluid or intraperitoneal air. There are no focal fluid collections. Aorta and retroperitoneum appear normal as do pelvic soft tissue structures. There is a ventral hernia at the level of the umbilicus, this contains some ascites, there are no bowel loops involved. This has increased in size somewhat since previous exam, now measuring 4.3 cm. There is also a right inguinal hernia containing ascites. Both of these were present on previous exam as well. Osseous structures appear unremarkable. IMPRESSION: 1. Nodular liver, splenomegaly, varices and moderate ascites consistent with cirrhosis. 2. Periumbilical ventral hernia containing only ascites, increased somewhat in size since prior exam, now 4.3 cm. 3. Right inguinal hernia also containing only ascitic fluid, unchanged. CT was performed with one or more following dose reduction techniques: automated exposure control, adjustment of the mA and kv according to patient's size, or use of a iterative reconstruction technique.
[2024-08-11 16:58] LABS: APPEARANCE,URINE CLEAR (CLEAR); BILIRUBIN,URINE NEGATIVE (NEGATIVE); COLOR,URINE YELLOW (YELLOW); GLUCOSE, URINE (UA) NEGATIVE (NEGATIVE); KETONES,URINE NEGATIVE (NEGATIVE); LEUKOCYTE ESTERASE ,URINE NEGATIVE Leu/uL (NEGATIVE); NITRATE,URINE NEGATIVE (NEGATIVE); OCCULT BLOOD,URINE NEGATIVE (NEGATIVE); PROTEIN,URINE 50 mg/dL (NEGATIVE); WBC,URINE 0-1 /HPF (0-1)
[2024-08-11] MEDS ORDERED: POLY17PO4 PO (17:27)
[2024-08-11 17:30] VITALS: BP 130/75; PULSE 65; RESP 16; TEMP 98.3; O2SAT 98
== END 2024-08-11 17:37 | disposition home or self-care (01) ==
LOC: EDH 12:07
DX: K40.90 Unilateral inguinal hernia, without obstruction or gangrene, not specified as recurrent (principal); K43.9 Ventral hernia without obstruction or gangrene; K59.00 Constipation, unspecified; F17.200 Nicotine dependence, unspecified, uncomplicated; Z98.890 Other specified postprocedural states
CPT/HCPCS: 99285; 74177; 80053; 83690; 85025; 81001; 36415; 96372; J1885; Q9967

== ENCOUNTER 2024-08-18 10:57 | Emergency (ER) | payer OTHER ==
[~2024-08-18] VITALS: Ht 172.7 cm; Wt 68.0 kg
[~2024-08-18 10:57] MED LIST changes: -IOHEXOL 350 MG/ML 100ML INFUS..BTL IV ONE; +POLY17PO4 PO
[2024-08-18 11:47] LABS: BASOPHILS # (AUTO) 0.02 K/uL (0.00-0.20); BASOPHILS % (AUTO) 0.6 % (0.0-5.0); EOSINOPHILS # (AUTO) 0.09 K/uL (0.00-0.70); EOSINOPHILS % (AUTO) 2.5 % (0.0-8.0); HEMATOCRIT 43.6 % (42-54); IMMATURE GRANULOCYTE ABSOLUTE 0.02 K/uL (0-1); LYMPHOCYTES # (AUTO) 0.8 K/uL (1.0-4.8); LYMPHOCYTES % (AUTO) 22.3 % (21.0-51.0); MEAN CORPUSCULAR HEMOGLOBIN 30.6 pg (27.0-33.0); MEAN CORPUSCULAR VOLUME 92.6 fL (79-99); MONOCYTES # (AUTO) 0.2 K/uL (0.1-1.0); MONOCYTES % (AUTO) 5.8 % (3.0-13.0); NEUTROPHILS # (AUTO) 2.5 K/uL (1.8-7.7); NEUTROPHILS % (AUTO) 68.2 % (40.0-77.0); PLATELET COUNT (AUTO) 95 K/uL (130-400); RED BLOOD CELL COUNT(AUTO) 4.71 MIL/uL (4.50-6.20); RED CELL DISTRIBUTION WIDTH 14.3 % (11.0-15.5); WHITE BLOOD COUNT (AUTO) 3.6 K/uL (4.8-10.8)
[2024-08-18 11:53] LABS: CREATININE 0.7 mg/dL (0.5-1.3); POTASSIUM 4.2 mmol/L (3.5-5.1)
[2024-08-18 11:58] LABS: ALBUMIN 2.9 g/dL (3.5-5.0); BILIRUBIN,TOTAL 2.6 mg/dL (0.2-1.0); TOTAL PROTEIN, SERUM 6.8 g/dL (6.0-8.3)
[2024-08-18 12:27] LABS: INR 1.29 (0.85-1.15); PROTHROMBIN TIME 13.3 SEC (9.6-11.6)
[2024-08-18 12:29] LABS: PARTIAL THROMBOPLASTIN TIME 29.8 SEC (26.3-35.5)
[2024-08-18] MEDS: PANTOPrazole 40 MG/VIAL IVP ONE (12:30)
[2024-08-18] MEDS: CEFTRIAXONE 2GM VIAL IVPB ONE (12:30)
--- NOTE | 2024-08-18 12:31 | ERN ---
ED Note History of Present Illness Stated Complaint: COFFEE GROUND EMESIS Chief Complaint: Hematemesis/Vomiting Blood Time Seen by MD: 11:44 Dictation: 59-year-old male with history of liver disease presents to the ED for evaluation of brown emesis. Patient reports abdominal pain, nausea, but denies any diarrhea, or any other associated symptoms at this time. Patient is also complaining of hernias. Allergies: Coded Allergies: No Known Drug Allergies (Unverified Allergy, Unknown, 12/29/21) Home Meds Active Scripts Pantoprazole Sodium (Protonix) 20 Mg Tablet.dr, 1 TAB PO DAILY for 30 Days, #30 TAB 0 Refills Prov:AMANDA RIDDLE MD 08/18/24 Polyethylene Glycol 3350 (Miralax) 17 Gram Powd.pack, 17 GM PO DAILY for constipation for 7 Days, #7 PACKET 0 Refills Prov:JASKARAN DIOR 08/11/24 Past Medical History Past Medical History: Hypertension, Liver Disease Additional Past Medical Hx: HEPATITIS C, HERNIA, CHRONIC BACK PAIN Surgical History: Unknown Surgical History Other: RUE TENDON REPAIR, HERNIA Social History: Smokers, ETOH Review of System Dictation Constitutional: Negative for fever,chills, and weight loss Eyes: Negative for injury, pain,redness, and discharge ENT: Negative for injury,pain or swelling Cardiovascular: Negative for chest pain, palpitations, and edema Respiratory: Negative for shortness of breath, cough, and wheezing, Abdomen/GI: Positive for abdominal pain, nausea, vomiting Back: Negative for injury and pain : Negative for injury, bleeding and discharge MS/Extremity: Negative for injury and deformity Skin: Negative for rash, and discoloration Neuro: Negative for headache, weakness, numbness, tingling, and seizure Psych: Negative for suicide ideation, homicidal ideation, and hallucinations Initial Vital Sign VS Vital Signs Date Time Temp Pulse Resp B/P (MAP) Pulse Ox O2 Delivery O2 Flow Rate FiO2 08/18/24 10:59 98.2 77 17 123/68 98 Room Air 08/18/24 11:15 0 21 Physical Exam Dictation General: awake, alert, NAD Head/Face: Normocephalic, atraumatic Eyes: PERRL, EOMI, vision at baseline ENT: oral cavity clear, TMs clear, no signs of infection Neck: Trachea midline, supple, no nuchal rigidity Cardiovascular: RRR, normal S1/S2, No MRGs, no JVD Respiratory: CTAB, no respiratory distress, No rales or wheezes Abdomen: soft, Midline reproducible hernia non-distended, normal bowel sounds, no guarding or rebound. Skin: Warm, dry, normal turgor, no rash MS/Extremity: Pulses equal, no cyanosis, neurovascular intact, FROM Neuro: COAx4, GCS 15, strength 5/5, CN 2-12 intact, normal cerebellar exam, normal gait, Psych: Normal behavior, mood, and affect normal Results (Laboratory/Radiology) Laboratory/Radiology Laboratory Tests Test 08/18/24 11:00 08/18/24 12:07 08/18/24 13:09 White Blood Count 3.6 K/uL (4.8-10.8) L Red Blood Count 4.71 MIL/uL (4.50-6.20) Hemoglobin 14.4 g/dL (14.0-18.0) Hematocrit 43.6 % (42-54) Mean Corpuscular Volume 92.6 fL (79-99) Mean Corpuscular Hemoglobin 30.6 pg (27.0-33.0) Mean Corpuscular Hemoglobin Concent 33.0 g/dL (32.0-36.0) Red Cell Distribution Width 14.3 % (11.0-15.5) Platelet Count 95 K/uL (130-400) L Mean Platelet Volume 10.5 fL (7.5-10.5) Immature Granulocyte % (Auto) 0.6 % (0-1) Neutrophils (%) (Auto) 68.2 % (40.0-77.0) Lymphocytes (%) (Auto) 22.3 % (21.0-51.0) Monocytes (%) (Auto) 5.8 % (3.0-13.0) Eosinophils (%) (Auto) 2.5 % (0.0-8.0) Basophils (%) (Auto) 0.6 % (0.0-5.0) Neutrophils # (Auto) 2.5 K/uL (1.8-7.7) Lymphocytes # (Auto) 0.8 K/uL (1.0-4.8) L Monocytes # (Auto) 0.2 K/uL (0.1-1.0) Eosinophils # (Auto) 0.09 K/uL (0.00-0.70) Basophils # (Auto) 0.02 K/uL (0.00-0.20) Absolute Immature Granulocyte (auto 0.02 K/uL (0-1) Nucleated Red Blood Cells 0.0 % (0.0-0.19) Sodium Level 140 mmol/L (136-145) Potassium Level 4.2 mmol/L (3.5-5.1) Chloride Level 104 mmol/L (101-111) Carbon Dioxide Level 33 mmol/L (21-32) H Blood Urea Nitrogen 10 mg/dL (7-18) Creatinine 0.7 mg/dL (0.5-1.3) Glomerular Filtration Rate Calc 107 mL/min (>90) Random Glucose 111 mg/dL (70-105) H Total Calcium 8.4 mg/dL (8.5-10.1) L Total Bilirubin 2.6 mg/dL (0.2-1.0) H Aspartate Amino Transf (AST/SGOT) 331 U/L (10-37) H Alanine Aminotransferase (ALT/SGPT) 286 U/L (12-78) H Alkaline Phosphatase 287 U/L (50-136) H Total Protein 6.8 g/dL (6.0-8.3) Albumin 2.9 g/dL (3.5-5.0) L Lipase 63 U/L (16-77) Prothrombin Time 13.3 SEC (9.6-11.6) H Prothromb Time International Ratio 1.29 (0.85-1.15) H Activated Partial Thromboplast Time 29.8 SEC (26.3-35.5) Lactic Acid Level 1.4 mmol/L (0.8-2.5) Troponin I High Sensitivity 5 ng/L (4-75) B-Type Natriuretic Peptide 19 pg/mL (0-100) Urine Color YELLOW (YELLOW) Urine Appearance CLEAR (CLEAR) Urine pH 5.5 (5.0-8.0) Urine Specific [place] 1.025 (1.001-1.031) Urine Protein 10 mg/dL (NEGATIVE) H Urine Glucose (UA) NEGATIVE mg/dL (NEGATIVE) Urine Ketones NEGATIVE mg/dL (NEGATIVE) Urine Occult Blood NEGATIVE (NEGATIVE) Urine Nitrate NEGATIVE (NEGATIVE) Urine Bilirubin NEGATIVE mg/dL (NEGATIVE) Urine Urobilinogen 0.2 mg/dL (0.2-1.0) Urine Leukocyte Esterase NEGATIVE Arely/uL Urine RBC 0-1 /HPF (0-1) Urine WBC 0-1 /HPF (0-1) Urine Bacteria None /HPF (None Seen) Labs Reviewed?: Yes EKG Comment: EKG 08/18/2024 time 11:56 a.m. ventricular rate 75, UT 128, QRS D 76, QT 400. Sinus rhythm. No STEMI CT Scan Comment: REASON: abd pain ORDERING PHYSICIAN: AMANDA RIDDLE MD PROCEDURE: ABD PELVWO - CT ABD/PEL WO CON RENAL/APPY CT ABD/PEL WO CON RENAL/APPY HISTORY: Abdominal pain COMPARISON: 08/11/2024 TECHNIQUE: Multiple sequential axial images of the abdomen and pelvis were obtained from the dome of the diaphragm through symphysis pubis. Patient was not given contrast through intravenous route. Oral contrast was not given. FINDINGS: No pleural effusion is seen bilaterally. There is no evidence of parenchymal disease or pulmonary nodule of the visualized lower lungs. Degenerative changes of the thoracolumbar spine are present. The heart is not enlarged. Cirrhotic changes of the liver are noted. Liver measures 16 cm. Spleen is enlarged measuring 20 cm. There are abdominal varices. There is periumbilical hernia with fluid content. Spleen, adrenal glands and pancreas are unremarkable. There is no evidence of hydronephrosis bilaterally. No evidence of renal stone is seen. There is mild diverticulosis. Fecal material is seen in the colon. There are normal size retroperitoneal and mesenteric lymph nodes. Small ascites is seen. There is right inguinal hernia with fluid content. Atherosclerotic changes are present. Pelvic sidewalls are symmetric bilaterally. Bladder is well distended without wall thickening. IMPRESSION: 1. Cirrhotic liver with enlarged spleen and abdominal varices. Small ascites is seen. Diverticulosis. CT was performed with one or more following dose reduction techniques: automated exposure control, adjustment of the mA and kv according to patient's size, or use of a iterative reconstruction technique. DICTATED BY: DAYSI HAINES MD DATE: 08/18/24 1403 ED Course ED Course Orders Procedure Category Date Status Time Vital Signs Per CPOE 08/18/24 Transmitted Routine 11:13 Saline Lock Iv CPOE 08/18/24 Transmitted 11:13 Cbc With Differential LAB 08/18/24 Complete 11:13 Comprehensive LAB 08/18/24 Complete Metabolic Panel 11:13 Lipase LAB 08/18/24 Complete 11:13 Urinalysis Profile LAB 08/18/24 Complete 11:13 12 Lead Ekg Tracing- EKG 08/18/24 Complete Technical 11:44 B-Type Natriuretic LAB 08/18/24 Complete Peptide 11:44 Pt And Ptt LAB 08/18/24 Complete 11:44 Lactic Acid LAB 08/18/24 Complete 11:44 Blood Cult DILIP 08/18/24 In Process 11:44 Troponin I High LAB 08/18/24 Complete Sensitivity 11:44 Chest 1vw RAD 08/18/24 Taken 11:44 Ceftriaxone 2gm Vial PHA 08/18/24 Complete (Rocephin 2gm Inj) 12:30 Pantoprazole 40mg Inj PHA 08/18/24 Complete (Protonix 40mg Inj 12:30 Ct Abd/Pel Wo Con CT 08/18/24 Resulted Renal/Appy 12:25 Current Medications Medications (Trade) Dose Ordered Sig/Padmaja Route PRN Reason Start Time Stop Time Status Last Admin Dose Admin Ceftriaxone Sodium (Rocephin 2gm Inj) 2 gm ONCE ONCE IVPB 08/18/24 12:30 08/18/24 12:31 DC 08/18/24 12:30 Pantoprazole Sodium (PROTonix 40MG INJ) 80 mg ONCE ONCE IVP 08/18/24 12:30 08/18/24 12:31 DC 08/18/24 12:30 Vital Signs Date Time Temp Pulse Resp B/P (MAP) Pulse Ox O2 Delivery O2 Flow Rate FiO2 08/18/24 14:35 98.2 72 17 127/62 98 Room Air* 0 21 08/18/24 11:15 98.2 77 17 123/68 98 Room Air* 0 21 08/18/24 10:59 98.2 77 17 123/68 98 Room Air Medical Decision Making MDM MDM: Differential diagnosis: Abdominal pain, vomiting, hernias Risk of complication and/or morbidity or mortality of patient management: None Medications-Per medication reconciliation Need for hospitalization: Patient does not meet criteria for hospitalization. Need for emergency major/minor surgery: No There are no social concerns with this patient. Prescription drug management Prescriptions will include symptomatic care I independently interpreted the test that were performed, results were reviewed by me and considered findings on radiology if ordered. DX & DISP Disposition: Discharge Departure Impression: Primary Impression: Acute abdominal pain Additional Impression: Acute gastritis Condition: Stable Scripts Pantoprazole Sodium (Protonix) 20 Mg Tablet.dr 1 TAB PO DAILY for 30 Days, #30 TAB 0 Refills Prov: AMANDA RIDDLE MD 08/18/24 Referrals: CRISTOBAL SOARES MD (PCP) AMANDA RIDDLE MD Aug 18, 2024 12:31
--- NOTE | 2024-08-18 12:35 | EKG ---
[facility] Test Date: 2024-08-18 Test Time: 11:56:46 Pat Name: NICA HEWITT Department: [facility] Patient ID: [id number] Room: Gender: M [employer] Filler: [id number] : 1965 Requested By: AMANDA RIDDLE Order Number: [id number] Reading MD: Markell Guo Measurements Intervals [place] Rate: 75 P: 54 ME: 128 QRS: 44 QRSD: 76 T: 46 QT: 400 QTc: 446 Interpretive Statements Sinus rhythm Compared to ECG 09/25/2023 16:32:31 No significant changes Electronically Signed On 08-18-2024 16:05:20 ANALYSIS LEAD by Markell Guo Please click the below link to view image of tracing.
[2024-08-18 13:26] LABS: APPEARANCE,URINE CLEAR (CLEAR); BILIRUBIN,URINE NEGATIVE (NEGATIVE); COLOR,URINE YELLOW (YELLOW); GLUCOSE, URINE (UA) NEGATIVE (NEGATIVE); KETONES,URINE NEGATIVE (NEGATIVE); LEUKOCYTE ESTERASE ,URINE NEGATIVE Leu/uL (NEGATIVE); NITRATE,URINE NEGATIVE (NEGATIVE); OCCULT BLOOD,URINE NEGATIVE (NEGATIVE); PH,URINE 5.5 (5.0-8.0); PROTEIN,URINE 10 mg/dL (NEGATIVE); UROBILINOGEN,URINE 0.2 mg/dL (0.2-1.0)
[2024-08-18 13:28] LABS: ADD UA MICROSCOPIC YES
[2024-08-18 13:30] LABS: MUCUS,URINE FEW LPF (None Seen); RBC,URINE 0-1 /HPF (0-1); WBC,URINE 0-1 /HPF (0-1)
--- NOTE | 2024-08-18 14:07 | HMCIMG ---
CT ABD/PEL WO CON RENAL/APPY HISTORY: Abdominal pain COMPARISON: 08/11/2024 TECHNIQUE: Multiple sequential axial images of the abdomen and pelvis were obtained from the dome of the diaphragm through symphysis pubis. Patient was not given contrast through intravenous route. Oral contrast was not given. FINDINGS: No pleural effusion is seen bilaterally. There is no evidence of parenchymal disease or pulmonary nodule of the visualized lower lungs. Degenerative changes of the thoracolumbar spine are present. The heart is not enlarged. Cirrhotic changes of the liver are noted. Liver measures 16 cm. Spleen is enlarged measuring 20 cm. There are abdominal varices. There is periumbilical hernia with fluid content. Spleen, adrenal glands and pancreas are unremarkable. There is no evidence of hydronephrosis bilaterally. No evidence of renal stone is seen. There is mild diverticulosis. Fecal material is seen in the colon. There are normal size retroperitoneal and mesenteric lymph nodes. Small ascites is seen. There is right inguinal hernia with fluid content. Atherosclerotic changes are present. Pelvic sidewalls are symmetric bilaterally. Bladder is well distended without wall thickening. IMPRESSION: 1. Cirrhotic liver with enlarged spleen and abdominal varices. Small ascites is seen. Diverticulosis. CT was performed with one or more following dose reduction techniques: automated exposure control, adjustment of the mA and kv according to patient's size, or use of a iterative reconstruction technique.
[2024-08-18 14:35] VITALS: BP 127/62; PULSE 72; RESP 17; TEMP 98.2; O2SAT 98
[2024-08-18] MEDS ORDERED: PANT20TA PO (15:33)
[2024-08-18] MEDS: ondanSETRON 4MG INJ IVP ONE (15:51)
--- NOTE | 2024-08-18 15:53 | HMCIMG ---
CHEST 1VW HISTORY: GI bleed COMPARISON: 09/28/2023 FINDINGS: A frontal projection of the chest was obtained. No acute pulmonary infiltrates is seen. The heart is normal in size. Prominent interstitial markings are seen. No evidence of aortic calcification is seen. IMPRESSION: 1. No acute pulmonary infiltrate is seen.
== END 2024-08-18 17:07 | disposition home or self-care (01) ==
LOC: EDH 10:57
DX: K29.00 Acute gastritis without bleeding (principal); F17.200 Nicotine dependence, unspecified, uncomplicated; I10 Essential (primary) hypertension; Z79.899 Other long term (current) drug therapy
CPT/HCPCS: 99285; 74176; 96374; 96375; 71045; 84484; 80053; 83880; 83690; 85025; 85610; 85730; 87040 ×2; 83605; 81001; 36415; 93005; J0696; J2405; J2470

== ENCOUNTER 2024-09-20 11:06 | Emergency (ER) | payer OTHER ==
[~2024-09-20] VITALS: Ht 172.7 cm; Wt 72.6 kg
[~2024-09-20 11:06] MED LIST changes: +PANT20TA PO
[2024-09-20 11:07] VITALS: BP 131/85; PULSE 81; RESP 16; TEMP 98.2
--- NOTE | 2024-09-20 11:13 | ERN ---
ED Note History of Present Illness Stated Complaint: ABDOMINAL PAIN Chief Complaint: Abdominal Pain Time Seen by MD: 11:09 Dictation: PATIENT IS A 59-YEAR-OLD MALE COMING IN VIA EMS WITH COMPLAINTS OF ABDOMINAL DISTENTION HE HAS HAD FOR MORE THAN A MONTH AND A HALF. STATES HE HAS A HISTORY OF CIRRHOSIS DUE TO ALCOHOLISM, STOPPED ALCOHOL ABUSE LAST MONTH. HE IS A PATIENT OF DR. WHITE HOWEVER HAS NEVER SEEN DR. WHITE BECAUSE HE NEVER COULD GET TRANSPORTATION TO HIS OFFICE. ADDITIONALLY HE IS CONCERNED ABOUT A VENTRAL HERNIA HE HAS HAD FOR SEVERAL MONTHS. HE DENIES FEVER CHILLS NAUSEA VOMITING. STATES HE HAD A PRIOR HERNIA REPAIR BY Allergies: Coded Allergies: No Known Drug Allergies (Unverified Allergy, Unknown, 12/29/21) Home Meds Active Scripts Pantoprazole Sodium (Protonix) 20 Mg Tablet.dr, 1 TAB PO DAILY for 30 Days, #30 TAB 0 Refills Prov:AMANDA RIDDLE MD 08/18/24 Polyethylene Glycol 3350 (Miralax) 17 Gram Powd.pack, 17 GM PO DAILY for constipation for 7 Days, #7 PACKET 0 Refills Prov:JASKARAN DIOR 08/11/24 Past Medical History Past Medical History: Hypertension, Liver Disease Additional Past Medical Hx: HEPATITIS C, HERNIA, CHRONIC BACK PAIN Surgical History: Unknown Surgical History Other: RUE TENDON REPAIR, HERNIA Social History: Smokers, ETOH RN Note Reviewed/Agreed w/PFSH: Yes Review of System Dictation CONSTITUTIONAL: NEGATIVE EXCEPT FOR HPI HEAD/FACE: NEGATIVE EXCEPT FOR HPI EENT: NEGATIVE EXCEPT FOR HPI RESPIRATORY: NEGATIVE EXCEPT FOR HPI GASTROINTESTINAL/ABDOMINAL: NEGATIVE EXCEPT FOR HPI MILD ABDOMINAL DISTENTION WITH VENTRAL HERNIA NOTED GENITOURINARY: NEGATIVE EXCEPT FOR HPI MUSCULOSKELETAL: NEGATIVE EXCEPT FOR HPI INTEGUMENTARY: NEGATIVE EXCEPT FOR HPI NEUROLOGICAL/PSYCH: NEGATIVE EXCEPT FOR HPI HEMATOLOGIC/LYMPHATIC: NEGATIVE EXCEPT FOR HPI ALL SYSTEMS NEGATIVE, EXCEPT NOTED ABOVE. 13 POINT REVIEW OF SYSTEMS ASSESSED AND ALL NEGATIVE EXCEPT FOR ABOVE. Initial Vital Sign VS Vital Signs Date Time Temp Pulse Resp B/P (MAP) Pulse Ox O2 Delivery O2 Flow Rate FiO2 09/20/24 11:07 98.2 81 16 131/85 98 Room Air 0 Physical Exam Dictation VITAL SIGNS REVIEWED GENERAL APPEARANCE: ALERT, ORIENTED X 3, NO ACUTE DISTRESS, WELL DEVELOPED, NOURISHED. HEAD AND FACE: NON-TRAUMATIC. EYES: PERRL, PINK CONJUNCTIVAS, EYELID NO TRAUMA, ANTERIOR CHAMBER WITH ARCUS SENILIS. EARS: PINNAS INTACT AND NO SIGNS OF TRAUMA OR ERYTHEMA EAR CANALS CLEAR AND NO DISCHARGE TM NO ERYTHEMA NOSE: NO DISCHARGE, NO BLEEDING. OROPHARYNX: MOUTH NORMAL, TONGUE PINK, PHARYNX CLEAR,NO ERYTHEMA, TONSILS NO EXUDATES, NO ABSCESSES NOTED, MUCOUS MEMBRANE MOIST NECK: SUPPLE, NON-TENDER, NO THYROMEGALY, NO MASSES, NO JVD, NO BRUITS BREAST:DEFERRED CHEST:NO TENDERNESS, NO CREPITUS, NO PARADOXICAL MOVEMENT, NO RETRACTIONS LUNGS:CLEAR, WELL-VENTILATED, SYMMETRIC, NO RALES, NO WHEEZING, NO RHONCHI, NO STRIDOR, GOOD BREATH SOUNDS BILATERALLY HEART: REGULAR RATE, REGULAR RHYTHM, NO MURMUR, NO GALLOPS VASCULAR: NO PERIPHERAL EDEMA, ABDOMEN: SOFT, POSITIVE BOWEL SOUNDS, MILD DISTENTION, NO GUARDING, NONTENDER, NO REBOUND, NO MASSES NO HEPATOMEGALY, NO SPLENOMEGALY, NO VALDERRAMA'S SIGN, VENTRAL HERNIA PROXIMAL UMBILICUS REDUCIBLE. RECTAL: DEFERRED GENITAL: DEFERRED NEUROLOGICAL: NORMAL SPEECH, MOTOR FUNCTION INTACT, SENSORY FUNCTION INTACT MUSCULOSKELETAL: NECK NONTENDER, FULL RANGE OF MOTION, BACK NONTENDER, FULL RANGE OF MOTION, EXTREMITIES: NONTENDER, FULL RANGE OF MOTION SKIN: COLOR PINK, DRY, NO TURGOR, NO RASH, NO LACERATIONS, NO ABRASIONS, NO CONTUSIONS. LYMPHATIC: DEFERRED Results (Laboratory/Radiology) Laboratory/Radiology Laboratory Tests Test 09/20/24 11:26 White Blood Count 3.5 K/uL (4.8-10.8) L Red Blood Count 4.43 MIL/uL (4.50-6.20) L Hemoglobin 13.5 g/dL (14.0-18.0) L Hematocrit 41.2 % (42-54) L Mean Corpuscular Volume 93.0 fL (79-99) Mean Corpuscular Hemoglobin 30.5 pg (27.0-33.0) Mean Corpuscular Hemoglobin Concent 32.8 g/dL (32.0-36.0) Red Cell Distribution Width 14.1 % (11.0-15.5) Platelet Count 86 K/uL (130-400) L Mean Platelet Volume 10.3 fL (7.5-10.5) Immature Granulocyte % (Auto) 0.6 % (0-1) Neutrophils (%) (Auto) 59.5 % (40.0-77.0) Lymphocytes (%) (Auto) 27.5 % (21.0-51.0) Monocytes (%) (Auto) 6.6 % (3.0-13.0) Eosinophils (%) (Auto) 5.2 % (0.0-8.0) Basophils (%) (Auto) 0.6 % (0.0-5.0) Neutrophils # (Auto) 2.1 K/uL (1.8-7.7) Lymphocytes # (Auto) 1.0 K/uL (1.0-4.8) Monocytes # (Auto) 0.2 K/uL (0.1-1.0) Eosinophils # (Auto) 0.18 K/uL (0.00-0.70) Basophils # (Auto) 0.02 K/uL (0.00-0.20) Absolute Immature Granulocyte (auto 0.02 K/uL (0-1) Nucleated Red Blood Cells 0.0 % (0.0-0.19) Sodium Level 146 mmol/L (136-145) H Potassium Level 4.2 mmol/L (3.5-5.1) Chloride Level 108 mmol/L (101-111) Carbon Dioxide Level 32 mmol/L (21-32) Blood Urea Nitrogen 12 mg/dL (7-18) Creatinine 0.9 mg/dL (0.5-1.3) Glomerular Filtration Rate Calc 99 mL/min (>90) Random Glucose 109 mg/dL (70-105) H Total Calcium 8.6 mg/dL (8.5-10.1) Ammonia < 10 umol/L (11-32) L 1232/ABDOMINAL ULTRASOUND DEMONSTRATES TWO VENTRAL HERNIAS NO BOWEL INVOLVED OR FAT. Labs Reviewed?: Yes ED Course ED Course Orders Procedure Category Date Status Time Ammonia LAB 09/20/24 Complete 11:10 Cbc With Differential LAB 09/20/24 Complete 11:10 Basic Metabolic Panel LAB 09/20/24 Complete 11:10 Us Abd Limited/Abd US 09/20/24 Taken Wall 11:10 Vital Signs Date Time Temp Pulse Resp B/P (MAP) Pulse Ox O2 Delivery O2 Flow Rate FiO2 09/20/24 11:07 98.2 81 16 131/85 98 Room Air 0 1235/PATIENT DISCHARGED HOME WITH TWO VENTRAL HERNIAS AND MILD ABDOMINAL DISTENTION SECONDARY TO ASCITES. NO URGENCY OR EMERGENCY USE FOR PARACENTESIS. HE WAS TOLD TO KEEP HIS APPOINTMENT WITH DR. WHITE NEXT WEEK. Medical Decision Making MDM MDM: DIFFERENTIAL DIAGNOSIS: VENTRAL HERNIA/INCARCERATED/STRANGULATED HERNIA/DISTENTION/CIRRHOSIS/ASCITES/ELECTROLYTE IMBALANCE/HYPERAMMONEMIA RATIONALE: TESTS CONSIDERED AND ORDERED SECONDARY TO SHARED DECISION MAKING INCLUDE: ULTRASOUND/LABS PREVIOUS OUTSIDE RECORDS REVIEWED: OLD ER VISITS. REVIEWED RISK OF COMPLICATION AND/OR MORBIDITY OR MORTALITY OF PATIENT MANAGEMENT: NONE MEDICATIONS-PER MEDICATION RECONCILIATION NEED FOR HOSPITALIZATION: PATIENT DOES NOT MEET CRITERIA FOR HOSPITALIZATION. NO NEED FOR EMERGENCY MAJOR/MINOR SURGERY: NO THERE ARE NO SOCIAL CONCERNS WITH THIS PATIENT. PRESCRIPTION DRUG MANAGEMENT NONE PRESCRIPTIONS WILL INCLUDE SYMPTOMATIC CARE PATIENT'S PRIOR EXTERNAL MEDICAL RECORDS FROM OTHER ER VISITS WERE REVIEWED BY ME INDICATED. PRIOR TESTING AND RESULTS FROM PREVIOUS VISITS WERE REVIEWED. PRIOR TESTS WERE TAKEN INTO ACCOUNT WITH MEDICAL DECISION MAKING AND RESOURCE UTILIZATION, INDEPENDENT HISTORIAN/HISTORIANS WERE USED TO OBTAIN COMPLETE MEDICAL HISTORY. I INDEPENDENTLY INTERPRETED THE TEST THAT WERE PERFORMED, RESULTS WERE REVIEWED BY ME AND CONSIDERED FINDINGS ON RADIOLOGY IF ORDERED. MEDICAL MANAGEMENT AND EXAMINATION INTERPRETATION DISCUSSIONS WERE HAD BY ME WITH OTHER QUALIFIED HEALTHCARE PROFESSIONALS INDICATED FOR THE PATIENT'S CARE. DX & DISP Disposition: Discharge Departure Impression: Primary Impression: Alcoholic cirrhosis of liver with ascites Additional Impressions: Distended abdomen, Hyperglycemia Condition: Stable Additional Instructions: FOLLOW-UP WITH PRIMARY CARE PROVIDER IN 1 TO 2 DAYS. TAKE MEDICATIONS DIRECTED HERE IN THE EMERGENCY ROOM. OKAY TO CONTINUE HOME MEDICATIONS UNLESS OTHERWISE DISCUSSED DURING YOUR VISIT IN THE EMERGENCY ROOM TODAY. RETURN TO YOUR NEAREST EMERGENCY ROOM IF SYMPTOMS WORSEN OR IF THERE IS NO IMPROVEMENT. CALL 911 IF YOU NEED IMMEDIATE ASSISTANCE. TAKE TYLENOL OR MOTRIN [id number] NEEDED AND IF NO CONTRAINDICATIONS ARE PRESENT. INCREASE ORAL HYDRATION. A WOUND CULTURE OR URINE CULTURE WAS ORDERED HERE IN THE EMERGENCY ROOM DEPARTMENT PLEASE FOLLOW-UP WITH PRIMARY CARE PROVIDER AND ADVISE THEM TO GET REPEAT PORTS FROM OUR FACILITY. IF YOU HAD ANY NAY WRAP/SPLINTS THAT WERE APPLIED HERE, PLEASE DO NOT REMOVE THEM UNTIL YOU SEE YOUR PRIMARY CARE OR SPECIALTY. DO NOT DRINK ALCOHOL. FOLLOW UP WITH DR. WHITE, YOUR CLAIMS CORRESPONDENCE CLERK NEXT WEEK Referrals: CRISTOBAL SOARES MD (PCP) APRIL WHITE MD Time of Disposition: 12:36 I have reviewed the case, and I agree with, Diagnosis and Plan LEON CASTLE NP Sep 20, 2024 11:13
[2024-09-20 11:36] LABS: BASOPHILS # (AUTO) 0.02 K/uL (0.00-0.20); BASOPHILS % (AUTO) 0.6 % (0.0-5.0); EOSINOPHILS # (AUTO) 0.18 K/uL (0.00-0.70); EOSINOPHILS % (AUTO) 5.2 % (0.0-8.0); HEMATOCRIT 41.2 % (42-54); IMMATURE GRANULOCYTE ABSOLUTE 0.02 K/uL (0-1); LYMPHOCYTES % (AUTO) 27.5 % (21.0-51.0); MEAN CORPUSCULAR HEMOGLOBIN 30.5 pg (27.0-33.0); MEAN CORPUSCULAR HGB CONC 32.8 g/dL (32.0-36.0); MONOCYTES # (AUTO) 0.2 K/uL (0.1-1.0); MONOCYTES % (AUTO) 6.6 % (3.0-13.0); NEUTROPHILS # (AUTO) 2.1 K/uL (1.8-7.7); NEUTROPHILS % (AUTO) 59.5 % (40.0-77.0); PLATELET COUNT (AUTO) 86 K/uL (130-400); RED BLOOD CELL COUNT(AUTO) 4.43 MIL/uL (4.50-6.20); RED CELL DISTRIBUTION WIDTH 14.1 % (11.0-15.5); WHITE BLOOD COUNT (AUTO) 3.5 K/uL (4.8-10.8)
[2024-09-20 11:46] LABS: CARBON DIOXIDE 32 mmol/L (21-32); CHLORIDE 108 mmol/L (101-111); CREATININE 0.9 mg/dL (0.5-1.3); GLOMERULAR FILTR. RATE CALC 99 mL/min (>90); GLUCOSE,RANDOM 109 mg/dL (70-105); POTASSIUM 4.2 mmol/L (3.5-5.1); SODIUM SERUM 146 mmol/L (136-145); UREA NITROGEN, BLOOD 12 mg/dL (7-18)
[2024-09-20 11:48] LABS: AMMONIA < 10 umol/L (11-32)
--- NOTE | 2024-09-20 12:49 | HMCIMG ---
US ABD LIMITED/ABD WALL HISTORY: VENTRAL HERNIA. RULE OUT INCARCERATION TECHNIQUE: US ABD LIMITED/ABD WALL. FINDINGS / IMPRESSION: Ultrasound evaluation of the periumbilical area was performed. Ventral abdominal wall hernia is seen measuring 5.3 x 6.1 and second hernia measuring 5.9 x 6.1 cm. Small amount of fluid seen in the hernia sac. No bowel was identified in the hernia sac. There is diastases of the rectus muscles measuring 2.8 cm.
== END 2024-09-20 14:06 | disposition home or self-care (01) ==
LOC: EDH 11:06
DX: K70.31 Alcoholic cirrhosis of liver with ascites (principal); R14.0 Abdominal distension (gaseous); R73.9 Hyperglycemia, unspecified; F17.200 Nicotine dependence, unspecified, uncomplicated; I10 Essential (primary) hypertension; Z79.899 Other long term (current) drug therapy
CPT/HCPCS: 36415; 76705; 80048; 82140; 85025; 99284

== ENCOUNTER 2025-05-10 16:40 | Inpatient (IN) | payer MEDICAID, OTHER ==
[~2025-05-10] VITALS: Ht 172.7 cm; Wt 62.1 kg
--- NOTE | 2025-05-10 16:49 | ERN ---
General Chief Complaint: Abdominal Pain Stated Complaint: ABD PAIN Time Seen by MD: 16:45 History of Present Illness Initial Comments 60-year-old male history of hypertension, hyperlipidemia, anxiety, liver cirrhosis secondary to alcohol use here for evaluation of tense ascites. Patient states he normally gets paracentesis done every two weeks however it was last paracentesis was done four weeks ago. He presents today for abdominal pain and worsening distention. Allergies: Coded Allergies: No Known Drug Allergies (Unverified Allergy, Unknown, 12/29/21) Home Meds Active Scripts Pantoprazole Sodium (Protonix) 20 Mg Tablet.dr, 1 TAB PO DAILY for 30 Days, #30 TAB 0 Refills Prov:AMANDA RIDDLE MD 08/18/24 Polyethylene Glycol 3350 (Miralax) 17 Gram Powd.pack, 17 GM PO DAILY for constipation for 7 Days, #7 PACKET 0 Refills Prov:JASKARAN DIOR 08/11/24 Past Medical History Past Medical History: Hypertension, Liver Disease Medical History Other: HEPATITIS C, HERNIA, CHRONIC BACK PAIN Past Surgical History: Unknown Surgical History Other: RUE TENDON REPAIR, HERNIA Social History Social History: Smokers, ETOH Gastrointestinal/Abdominal: (+) abdominal distention Physical Exam Physical Exam Dictation GENERAL APPEARANCE NAD, activity normal for age, well developed/ well nourished, no cyanosis, pallor, or diaphoresis. EYES pupils equal round reactive to light, EOMI, scleral icterus EARS/NOSE/THROAT Mucous membranes moist, nares normal, lips/teeth normal uvula midline without oral pharyngeal erythema, exudate or swelling TMs normal bilaterally. No lymphangitis/lymphedema. HEAD/NECK normocephalic atraumatic, no facial trauma, neck is supple. RESPIRATORY respiratory effort normal, speaks in full sentences, no tripod position, no accessory muscle use. Lungs clear to auscultation without rhonchi, wheezes, rales CARDIAC Regular rate and rhythm, no edema. ABDOMINAL distended abdomen. MUSCLES/EXTREMITIES No abnormal range of motion, no swelling. SKIN Warm, pink and dry. No rashes, dermatoses, petechiae or lesions. NEUROLOGICAL Speech is clear and appropriate. Normal level of consciousness. Gait and coordination are normal. 5/5 strength in all extremities. PSYCH Normal mood and affect. Judgement/competence is appropriate Results Laboratory and Microbiology Lab and Micro Result Laboratory Tests Test 05/10/25 17:00 White Blood Count 6.2 K/uL (4.8-10.8) Red Blood Count 4.45 MIL/uL (4.50-6.20) L Hemoglobin 13.6 g/dL (14.0-18.0) L Hematocrit 38.7 % (42-54) L Mean Corpuscular Volume 87.0 fL (79-99) Mean Corpuscular Hemoglobin 30.6 pg (27.0-33.0) Mean Corpuscular Hemoglobin Concent 35.1 g/dL (32.0-36.0) Red Cell Distribution Width 14.6 % (11.0-15.5) Platelet Count 126 K/uL (130-400) L Mean Platelet Volume 10.2 fL (7.5-10.5) Immature Granulocyte % (Auto) 0.5 % (0-1) Neutrophils (%) (Auto) 75.1 % (40.0-77.0) Lymphocytes (%) (Auto) 14.1 % (21.0-51.0) L Monocytes (%) (Auto) 7.1 % (3.0-13.0) Eosinophils (%) (Auto) 2.6 % (0.0-8.0) Basophils (%) (Auto) 0.6 % (0.0-5.0) Neutrophils # (Auto) 4.7 K/uL (1.8-7.7) Lymphocytes # (Auto) 0.9 K/uL (1.0-4.8) L Monocytes # (Auto) 0.4 K/uL (0.1-1.0) Eosinophils # (Auto) 0.16 K/uL (0.00-0.70) Basophils # (Auto) 0.04 K/uL (0.00-0.20) Absolute Immature Granulocyte (auto 0.03 K/uL (0-1) Nucleated Red Blood Cells 0.0 % (0.0-0.19) Sodium Level 133 mmol/L (136-145) L Potassium Level 4.2 mmol/L (3.5-5.1) Chloride Level 100 mmol/L (101-111) L Carbon Dioxide Level 27 mmol/L (21-32) Blood Urea Nitrogen 19 mg/dL (7-18) H Creatinine 1.1 mg/dL (0.5-1.3) Glomerular Filtration Rate Calc 77 mL/min (>90) Random Glucose 98 mg/dL (70-105) Total Calcium 8.3 mg/dL (8.5-10.1) L Total Bilirubin 1.8 mg/dL (0.2-1.0) H Direct Bilirubin 0.9 mg/dL (0.0-0.3) H Aspartate Amino Transf (AST/SGOT) 108 U/L (10-37) H Alanine Aminotransferase (ALT/SGPT) 101 U/L (12-78) H Alkaline Phosphatase 146 U/L (50-136) H Ammonia 34 umol/L (11-32) H Total Protein 6.2 g/dL (6.0-8.3) Albumin 2.2 g/dL (3.5-5.0) L MDM 60-year-old male history of liver cirrhosis secondary to alcohol here for evaluation of tense ascites. Patient will likely benefit from a paracentesis. We will admit the patient for paracentesis. ED Course Orders Procedure Category Date Status Time Cbc With Differential LAB 05/10/25 Complete 16:45 Basic Metabolic Panel LAB 05/10/25 Complete 16:45 Ammonia LAB 05/10/25 Complete 16:45 Hepatic Function Panel LAB 05/10/25 Complete 16:45 Chest 1vw RAD 05/10/25 Taken 16:47 Vital Signs Date Time Temp Pulse Resp B/P (MAP) Pulse Ox O2 Delivery O2 Flow Rate FiO2 05/10/25 17:25 99.3 94 20 115/79 96 Room Air* 0 21 05/10/25 16:42 98.4 98 18 124/85 97 DX & DISP Disposition: Inpatient Departure Impression: Primary Impression: Alcoholic cirrhosis of liver with ascites Additional Impressions: Distended abdomen, Abdominal hernia, Abnormal transaminases Condition: Stable Referrals: CRISTOBAL SOARES MD (PCP) RIVERA GIL MD May 10, 2025 16:49
[2025-05-10 17:09] LABS: IMMATURE GRANULOCYTE ABSOLUTE 0.03 K/uL (0-1); NUCLEATED RED BLOOD CELLS 0.0 % (0.0-0.19); PLATELET COUNT (AUTO) 126 K/uL (130-400); RED BLOOD CELL COUNT(AUTO) 4.45 MIL/uL (4.50-6.20); RED CELL DISTRIBUTION WIDTH 14.6 % (11.0-15.5); WHITE BLOOD COUNT (AUTO) 6.2 K/uL (4.8-10.8)
[2025-05-10 17:16] LABS: CREATININE 1.1 mg/dL (0.5-1.3); GLOMERULAR FILTR. RATE CALC 77.0 mL/min (>90); GLUCOSE,RANDOM 98.0 mg/dL (70-105); SODIUM SERUM 133.0 mmol/L (136-145); UREA NITROGEN, BLOOD 19.0 mg/dL (7-18)
[2025-05-10 17:21] LABS: ASPARTATE AMINOTRANSFERASE 108.0 U/L (10-37); TOTAL PROTEIN, SERUM 6.2 g/dL (6.0-8.3)
--- NOTE | 2025-05-10 18:21 | HMCIMG ---
EXAM: CR Chest, 1 View. CLINICAL HISTORY: sob, tesnse ascites COMPARISON: None provided. FINDINGS: LUNGS: The lungs show no infiltrate or other acute finding. PLEURAL SPACES: No evidence of pleural effusion or pneumothorax. MEDIASTINUM: The cardiomediastinal silhouette is within normal limits. BONES: No aggressive appearing osseous lesion seen. IMPRESSION: No acute cardiopulmonary pathology is evident. /Llewellyn
--- NOTE | 2025-05-10 19:10 | NUR ---
PT CARE ASSUMED AT THIS TIME
--- NOTE | 2025-05-10 19:12 | HP ---
[facility] HISTORY AND PHYSICAL Date of Service: May 10, 2025 Time of Service: 19:12 PCP: Feng Nation HISTORY OF PRESENT ILLNESS: This is a 60-year-old male with past medical history of hypertension, hyperlipidemia, anxiety, liver cirrhosis secondary to alcohol use who was brought by EMS for complaints of abdominal pain and worsening abdominal distention.On further evaluation patient states he feels abdominal fullness and has not been able to eat well because he gets full and bloated easily.Patient also reports he was at [facility] 3 weeks ago and underwent a paracentesis and removed 8L of fluid .Patient reports he has some shortness of breath especially when he is aslep he woke up very short of breath and 4 days ago he went back [place] [facility] but for some reason he was not able to bring his H&P he was discharged home he said so today his symptoms got worsened he decided to come to this facility because he has already been here before he said. Seen and examined patient in the ED awake,alert and coherent in no apparent respiratory distress,appears comfortable.Patient also reports recurrent abdominal hernia x2 .Patient denies fever,chills,nausea,vomiting ,chest pain,palpitation and shortness of breath.Patient last BM was today and he said it was normal. Latest vital signs temperature 98 0.2, heart rate 88, blood pressure 115/64 saturation 97% on room air. Labs: Hemoglobin 13, hematocrit 38, platelet count 126. Sodium 133, chloride 100, CO2 27, BUN 19, creatinine 1.1 GFR 77 total calcium 8.3 total bilirubin 1.8, direct bilirubin 0.9, AST 108 ALT 101, alkaline phosphatase 146, ammonia 34 albumin 2.2. Chest x-ray result revealed no acute cardiopulmonary pathology is evident. We will admit patient for further medical management. REVIEW OF SYSTEMS CONSTITUTIONAL: Denies fevers, chills, or night sweats. No unintentional weight loss reported. NEUROLOGICAL: Denies headache, amaurosis fugax, motor weakness, sensory deficit, vertigo/spinning sensation, gait abnormalities, or tremors. ENT: No hearing loss, otalgia, otorrhea, rhinitis, rhinorrhea, hoarseness, or sore throat. CARDIOVASCULAR: Denies any exertional angina, dyspnea on exertion, orthopnea, paroxysmal nocturnal dyspnea, palpitations, life-threatening arrhythmias, claudication. PULMONARY: Complain of shortness of breaths Denies cough, phlegm/sputum, hemoptysis, pleuritic chest pain. SLEEP: Denies morning headaches, daytime somnolence or napping. Denies difficulty falling asleep, staying asleep, waking from sleep. Denies knowledge of snoring. GASTROINTESTINAL:complained of abdominal pain, Abdominal distention and fullness Denies any type of dysphagia to either liquids or solids. Denies nausea, vomiting, pyrosis, early satiety, diarrhea, constipation, or changes in stool consistency or caliber. Denies coffee-ground emesis, hematemesis, hematochezia, or melanotic stools. GENITOURINARY: Denies frequency, urgency, nocturia, hematuria or incontinence (Storage/Irritative symptoms.) Low urinary stream, straining to void, urinary intermittency or hesitancy, splitting of the voiding stream, terminal dribbling. ENDOCRINOLOGIC: Denies polyuria, polydipsia, polyphagia or heat/cold intolerances. HEMATOLOGIC: Denies thrombophilia/previous clots, or coagulopathy/bleeding disorders. ONCOLOGIC: Denies personal history of malignancy. DERMATOLOGIC: Denies rashes or pruritus. PSYCHIATRIC: Denies any suicidal or homicidal ideation. Denies hallucinations. PAST MEDICAL HISTORY: [hypertension, hyperlipidemia, anxiety, lLiver cirrhosis, hepatitis-C, abdominal hernia, chronic back pain ] PAST SURGICAL HISTORY: [ Right forearm tendon repair, umbilical hernia repair paracentesis] PAST SOCIAL HISTORY: [ Patient lives alone. Patient denies alcohol, cigarette and recreational drug use. Patient states he quit sig July 2024 when he was diagnosed with cirrhosis. Patient reports he has been smoking and call since 16 years old and quit last July of 2024. ] FAMILY HISTORY: [ Hypertension, diabetes, cardiovascular disease and cancer ] Coded Allergies: No Known Drug Allergies (Unverified Allergy, Unknown, 12/29/21) PHYSICAL EXAM GENERAL APPEARANCE: The patient is awake, alert, and oriented, in no acute cardiopulmonary distress. NEUROLOGICAL: Cranial nerves II-XII grossly intact. Motor is 5/5 in bilateral upper and lower extremities proximal to distal. No sensory deficits. HEENT: Face is symmetric. Pupils are equal and reactive. Extraocular movements are intact. NECK: Supple. No JVD. No thyromegaly. No submental, submandibular, pre- /postauricular, occipital or supraclavicular lymphadenopathy. CHEST: Normal chest expansion. No Telemetry. LUNGS: Absence of any rales, rhonchi or any wheezing. CARDIOVASCULAR: Regular. S1 and S2 normal. No appreciable rubs, murmurs or gallops. ABDOMEN: Soft, nontender, and nondistended. There is no rebound, voluntary guarding, or rigidity. : Deferred. No Brasher. EXTREMITIES: Non-edematous and not cyanotic. No clubbing. Good capillary refill. SKIN: No skin breakdown. Vital Sign (Last 24 Hours) 05/10/25 17:25 Temp 99.3 Pulse 94 Resp 20 B/P (MAP) 115/79 Pulse Ox 96 O2 Delivery Room Air* O2 Flow Rate 0 FiO2 21 LABS: Laboratory: Test 05/10/25 17:00 Range/Units White Blood Count 6.2 4.8-10.8 K/uL Red Blood Count 4.45 L 4.50-6.20 MIL/uL Hemoglobin 13.6 L 14.0-18.0 g/dL Hematocrit 38.7 L 42-54 % Mean Corpuscular Volume 87.0 79-99 fL Mean Corpuscular Hemoglobin 30.6 27.0-33.0 pg Mean Corpuscular Hemoglobin Concent 35.1 32.0-36.0 g/dL Red Cell Distribution Width 14.6 11.0-15.5 % Platelet Count 126 L 130-400 K/uL Mean Platelet Volume 10.2 7.5-10.5 fL Immature Granulocyte % (Auto) 0.5 0-1 % Neutrophils (%) (Auto) 75.1 40.0-77.0 % Lymphocytes (%) (Auto) 14.1 L 21.0-51.0 % Monocytes (%) (Auto) 7.1 3.0-13.0 % Eosinophils (%) (Auto) 2.6 0.0-8.0 % Basophils (%) (Auto) 0.6 0.0-5.0 % Neutrophils # (Auto) 4.7 1.8-7.7 K/uL Lymphocytes # (Auto) 0.9 L 1.0-4.8 K/uL Monocytes # (Auto) 0.4 0.1-1.0 K/uL Eosinophils # (Auto) 0.16 0.00-0.70 K/uL Basophils # (Auto) 0.04 0.00-0.20 K/uL Absolute Immature Granulocyte (auto 0.03 0-1 K/uL Nucleated Red Blood Cells 0.0 0.0-0.19 % Sodium Level 133 L 136-145 mmol/L Potassium Level 4.2 3.5-5.1 mmol/L Chloride Level 100 L 101-111 mmol/L Carbon Dioxide Level 27 21-32 mmol/L Blood Urea Nitrogen 19 H 7-18 mg/dL Creatinine 1.1 0.5-1.3 mg/dL Glomerular Filtration Rate Calc 77 >90 mL/min Random Glucose 98 70-105 mg/dL Total Calcium 8.3 L 8.5-10.1 mg/dL Total Bilirubin 1.8 H 0.2-1.0 mg/dL Direct Bilirubin 0.9 H 0.0-0.3 mg/dL Aspartate Amino Transf (AST/SGOT) 108 H 10-37 U/L Alanine Aminotransferase (ALT/SGPT) 101 H 12-78 U/L Alkaline Phosphatase 146 H 50-136 U/L Ammonia 34 H 11-32 umol/L Total Protein 6.2 6.0-8.3 g/dL Albumin 2.2 L 3.5-5.0 g/dL DIAGNOSTICS / RADIOLOGY: [ ] ASSESSMENT: Acute decompensated liver cirrhosis with possible ascites POA Mild acute kidney injury POA Hyponatremia POA Elevated enzymes POA High ammonia level POA Protein calorie malnutrition POA Abdominal herniax2 POA Chronic anemia POA Chronic thrombocytopenia POA Hypertension POA Hyperlipidemia POA Anxiety disorder POA PLAN: We will admit patient in medical surgical We will start on full liquid diet We will start gentle hydration of NS @ 75 ml / hr x 1 bag and re evaluate We will start on daily lactulose We will start on Protonix 40mg po daily for GI prophylaxis We will replace electrolytes as needed per protocol We will add prn medication for fever,pain,cough , nausea and vomiting We will reconcile home meds once medlist available We will request for case management service Will seek IR for ultrasound guided paracentesis and obtain ascitic fluid for cell count with differential ,gram stain and culture We will request labs in am Further orders to follow depending on above results Case discussed with attending physician and came up with above treatment and plan of care. ADVANCED CARE PLANNING 1. Which of the following were discussed? Hospice Care - No Therapeutic options - Yes Advance Directives - No Other discussions - 2. Discussed with who? Patient 3. Voluntary nature of this service was explained to the patient? Yes 4. Amount of time spent - __22 min 5. Reviewed by Physician? (if this service was performed by NPP) Yes Patient seen and examined by me. Agree with note by INSURANCE ATTORNEY SEE ADDITIONAL ORDERS PER CHART DISCUSSED WITH NURSING STAFF MIRELLA HASKINS CHIEF DISPATCHER SERVICE May 10, 2025 19:12
[2025-05-10] MEDS: 0.9%NACL 1000ML 1,000 ML IV SCH (20:26)
--- NOTE | 2025-05-10 20:42 | NUR ---
ATTEMPT TO GIVE REPORT. NOT SUCCESSFUL.
--- NOTE | 2025-05-10 21:09 | NUR ---
REPORT GIVEN TO HIMA BUTLER AT THIS TIME
[2025-05-10 21:35] VITALS: BP 109/65; PULSE 82; RESP 18; TEMP 97.7
[2025-05-11] VITALS (17 sets, daily range): BP systolic 88–110; BP diastolic 43–79; PULSE 75–85; RESP 16–20; TEMP 97.4–98.2; O2SAT 78
[2025-05-11 04:30] LABS: IMMATURE GRANULOCYTE ABSOLUTE 0.02 K/uL (0-1); NUCLEATED RED BLOOD CELLS 0.0 % (0.0-0.19); PLATELET COUNT (AUTO) 115 K/uL (130-400); RED BLOOD CELL COUNT(AUTO) 4.13 MIL/uL (4.50-6.20); RED CELL DISTRIBUTION WIDTH 14.6 % (11.0-15.5); WHITE BLOOD COUNT (AUTO) 4.3 K/uL (4.8-10.8)
[2025-05-11 04:46] LABS: ASPARTATE AMINOTRANSFERASE 98.0 U/L (10-37); CREATININE 1.1 mg/dL (0.5-1.3); GLOMERULAR FILTR. RATE CALC 77.0 mL/min (>90); GLUCOSE,RANDOM 93.0 mg/dL (70-105); INR 1.28 (0.85-1.15); SODIUM SERUM 135.0 mmol/L (136-145); TOTAL PROTEIN, SERUM 5.7 g/dL (6.0-8.3); UREA NITROGEN, BLOOD 20.0 mg/dL (7-18)
[2025-05-11 05:20] LABS: BAND NEUTROPHILS % (MANUAL) 1 % (0-2); EOSINOPHILS % (MANUAL) 5 % (1-6); LYMPHOCYTES % (MANUAL) 21 % (22-44); MAN.DIFF COMMENT-IMPRESSION MANUAL DIFFERENTIAL; MONOCYTES % (MANUAL) 6 % (2-9); REACTIVE LYMPHOCYTES 4 % (0-0); SEGMENTED NEUTROPHILS % 63 % (40-70)
[2025-05-11 05:21] LABS: PLATELET MORPHOLOGY COMMENT SLIGHTLY DECREASED
[2025-05-11] MEDS: LACTULOSE 20 GM/30 ML UDCUP PO SCH (08:13)
--- NOTE | 2025-05-11 11:00 | NUR ---
U/S GD PARACENTESIS PROCEDURE PERFORMED BY DR GOOD. PUNCTURE SITE RLQ AND PATIENT TOLERATED PROCEDURE WELL. TOTAL REMOVED 15.0 LITERS OF YELLOW CLEAR FLUID. END OF PROCEDURE AT 1030. CATHETER REMOVED AND DRESSING APPLIED. NO BLEEDING NOTED. ALBUMIN 25% 50 GRAM GIVEN IV. REPORT GIVEN TO LUKE VINSON AND PATIENT TRANSPORTED TO 330 VIA WHEELCHAIR. AAO X3 WITH NO C/O PAIN. SPECIMEN SENT TO LAB.
[2025-05-11] MEDS: ALBUMIN HUMAN 25% 200 ML IV ONE (11:12)
--- NOTE | 2025-05-11 11:25 | HMCIMG ---
US ABDOMINAL PARACENTESIS IR REASON: ASCITES This procedure was performed by Dr. Catarina Bustamante M.D. PGY [address] Loya TECHNIQUE: Paracentesis was performed with ultrasound guidance. The puncture site was selected in the Right lower quadrant and overlying skin prepped and draped in a sterile fashion. 1% Xylocaine infiltration was performed. Catheter was placed in the fluid using trocar technique. 15 Liters were removed. Fluid sample was submitted for laboratory evaluation. The patient showed no evidence of complication during the procedure. Albumin was given. Patient tolerated procedure well IMPRESSION: 1. Ultrasound-guided paracentesis.
[2025-05-11 12:57] LABS: APPEARANCE BODY FLUID CLEAR (CLEAR); BODY FLUID RBC 199 /cu. mm.; BODY FLUID WBC 207 /cu. mm.; COLOR,BODY FLUID YELLOW (LT YELLOW); SPECIMENTYPE,BODY FLUID ASCITES; TOTAL VOLUME,BODY FLUID 15000 mL
[2025-05-11] MEDS: SPIRONOLACTONE 25 MG TAB PO SCH (13:00)
[2025-05-11 15:11] LABS: BF LYMPHOCYTE 22 %; BF MACROPHAGE 47; BF MONOCYTE 4 %; BF NEUTROPHIL 26.0 %; BF OTHER CELLS 1; BF TOTAL CELLS COUNTED 100
--- NOTE | 2025-05-11 15:27 | NUR ---
DCP:HOME vs SNF Pt currently lives alone in his home. Pt states that his family is in the process of getting him a walker and a wheelchair. Pt does not have any providers or home health. Pt states that he can complete ADLs independently just very slowly. PCP is Dr. Rios Solorzano. At NH pt is willing to consider a SNF if necessary.
--- NOTE | 2025-05-11 16:20 | PN ---
[facility] PROGRESS NOTE Date of Service: May 11, 2025 Time of Service: 16:20 SUBJECTIVE: HISTORY OF PRESENT ILLNESS: This is a 60-year-old male with past medical history of hypertension, hyperlipidemia, anxiety, liver cirrhosis secondary to alcohol use who was brought by EMS for complaints of abdominal pain and worsening abdominal distention.On further evaluation patient states he feels abdominal fullness and has not been able to eat well because he gets full and bloated easily.Patient also reports he was at [facility] 3 weeks ago and underwent a paracentesis and removed 8L of fluid .Patient reports he has some shortness of breath es pecially when he is aslep he woke up very short of breath and 4 days ago he went [place] [facility] [place] for some reason he was not able to bring his H&P he was discharged home he said so today his symptoms got worsened he decided to come to this facility because he has already been here before he said. Seen and examined patient in the ED awake,alert and coherent in no apparent respiratory distress,appears comfortable.Patient also reports recurrent abdominal hernia x2 .Patient denies fever,chills,nausea,vomiting ,chest pain,palpitation and shortness of breath.Patient last BM was today and he said it was normal. Latest vital signs temperature 98 0.2, heart rate 88, blood pressure 115/64 saturation 97% on room air. Labs: Hemoglobin 13, hematocrit 38, platelet count 126. Sodium 133, chloride 100, CO2 27, BUN 19, creatinine 1.1 GFR 77 total calcium 8.3 total bilirubin 1.8, direct bilirubin 0.9, AST 108 ALT 101, alkaline phosphatase 146, ammonia 34 albumin 2.2. Chest x-ray result revealed no acute cardiopulmonary pathology is evident. We will admit patient for further medical management. 05/11/2025: Patient was seen and evaluated bedside this morning. Patient says he has abdominal discomfort, denies chest pain, palpitations. Patient is scheduled for paracentesis by IR today. Medication reconciliation has not been done as patient lives alone and did not bring his medications while coming to ER. We will start Aldactone 50 mg daily, Lasix 20 mg daily, midodrine5 mg t.i.d. After paracentesis we will send fluid for analysis, give him albumin dose. REVIEW OF SYSTEMS CONSTITUTIONAL: Denies fevers, chills, or night sweats. No unintentional weight loss reported. NEUROLOGICAL: Denies headache, amaurosis fugax, motor weakness, sensory deficit, vertigo/spinning sensation, gait abnormalities, or tremors. ENT: No hearing loss, otalgia, otorrhea, rhinitis, rhinorrhea, hoarseness, or sore throat. CARDIOVASCULAR: Denies any exertional angina, dyspnea on exertion, orthopnea, paroxysmal nocturnal dyspnea, palpitations, life-threatening arrhythmias, claudication. PULMONARY: Complain of shortness of breaths Denies cough, phlegm/sputum, hemoptysis, pleuritic chest pain. SLEEP: Denies morning headaches, daytime somnolence or napping. Denies difficulty falling asleep, staying asleep, waking from sleep. Denies knowledge of snoring. GASTROINTESTINAL:complained of abdominal pain, Abdominal distention and fullness Denies any type of dysphagia to either liquids or solids. Denies nausea, vomiting, pyrosis, early satiety, diarrhea, constipation, or changes in stool consistency or caliber. Denies coffee-ground emesis, hematemesis, hematochezia, or melanotic stools. GENITOURINARY: Denies frequency, urgency, nocturia, hematuria or incontinence (Storage/Irritative symptoms.) Low urinary stream, straining to void, urinary intermittency or hesitancy, splitting of the voiding stream, terminal dribbling. ENDOCRINOLOGIC: Denies polyuria, polydipsia, polyphagia or heat/cold intolerances. HEMATOLOGIC: Denies thrombophilia/previous clots, or coagulopathy/bleeding disorders. ONCOLOGIC: Denies personal history of malignancy. DERMATOLOGIC: Denies rashes or pruritus. PSYCHIATRIC: Denies any suicidal or homicidal ideation. Denies hallucinations. PHYSICAL EXAM GENERAL APPEARANCE: The patient is awake, alert, and oriented, in no acute cardiopulmonary distress. NEUROLOGICAL: Cranial nerves II-XII grossly intact. Motor is 5/5 in bilateral upper and lower extremities proximal to distal. No sensory deficits. HEENT: Face is symmetric. Pupils are equal and reactive. Extraocular movements are intact. NECK: Supple. No JVD. No thyromegaly. No submental, submandibular, pre- /postauricular, occipital or supraclavicular lymphadenopathy. CHEST: Normal chest expansion. No Telemetry. LUNGS: Absence of any rales, rhonchi or any wheezing. CARDIOVASCULAR: Regular. S1 and S2 normal. No appreciable rubs, murmurs or gallops. ABDOMEN: Soft, nontender, and nondistended. There is no rebound, voluntary guarding, or rigidity. : Deferred. No Brasher. EXTREMITIES: Non-edematous and not cyanotic. No clubbing. Good capillary refill. SKIN: No skin breakdown. Vital Signs (last 8hr) Date Time Temp Pulse Resp B/P (MAP) Pulse Ox O2 Delivery O2 Flow Rate FiO2 05/11/25 12:05 19 101/61 100 Room Air 21 05/11/25 11:50 20 94/49 99 Room Air 21 05/11/25 11:35 98.1 79 19 103/43 100 Room Air 21 LABS: Laboratory: Test 05/11/25 11:00 05/11/25 04:11 Range/Units Body Fluid Source ASCITES Body Fluid Volume 84325 mL Body Fluid Color YELLOW LT YELLOW Body Fluid Supernatant Appearance CLEAR CLEAR Body Fluid WBC 207 /cu. mm. Body Fluid RBC 199 /cu. mm. Body Fluid Neutrophils 26.0 % Body Fluid Lymphocytes 22 % Body Fluid Monocytes % 4 % Body Fluid Macrophages (%) 47 Body Fluid Other Cells (%) 1 White Blood Count 4.3 #L 4.8-10.8 K/uL Red Blood Count 4.13 L 4.50-6.20 MIL/uL Hemoglobin 12.5 L 14.0-18.0 g/dL Hematocrit 36.0 L 42-54 % Mean Corpuscular Volume 87.2 79-99 fL Mean Corpuscular Hemoglobin 30.3 27.0-33.0 pg Mean Corpuscular Hemoglobin Concent 34.7 32.0-36.0 g/dL Red Cell Distribution Width 14.6 11.0-15.5 % Platelet Count 115 L 130-400 K/uL Mean Platelet Volume 9.8 7.5-10.5 fL Immature Granulocyte % (Auto) 0.5 0-1 % Neutrophils (%) (Auto) 59.5 40.0-77.0 % Lymphocytes (%) (Auto) 23.8 21.0-51.0 % Monocytes (%) (Auto) 8.8 3.0-13.0 % Eosinophils (%) (Auto) 6.7 0.0-8.0 % Basophils (%) (Auto) 0.7 0.0-5.0 % Neutrophils # (Auto) 2.6 1.8-7.7 K/uL Lymphocytes # (Auto) 1.0 1.0-4.8 K/uL Monocytes # (Auto) 0.4 0.1-1.0 K/uL Eosinophils # (Auto) 0.29 0.00-0.70 K/uL Basophils # (Auto) 0.03 0.00-0.20 K/uL Absolute Immature Granulocyte (auto 0.02 0-1 K/uL Segmented Neutrophils % 63 40-70 % Band Neutrophils % 1 0-2 % Lymphocytes % (Manual) 21 L 22-44 % Monocytes % (Manual) 6 2-9 % Eosinophils % (Manual) 5 1-6 % Nucleated Red Blood Cells 0.0 0.0-0.19 % Differential Comment MANUAL DIFFERENTIAL Reactive Lymphocytes 4 H 0-0 % White Cell Morphology Comment See comments Platelet Morphology Comment SLIGHTLY DECREASED Red Blood Cell Morphology ANISO 1+ Prothrombin Time 13.2 H 9.6-11.6 SEC Prothromb Time International Ratio 1.28 H 0.85-1.15 Activated Partial Thromboplast Time 29.3 26.3-35.5 SEC Sodium Level 135 L 136-145 mmol/L Potassium Level 3.7 3.5-5.1 mmol/L Chloride Level 100 L 101-111 mmol/L Carbon Dioxide Level 27 21-32 mmol/L Blood Urea Nitrogen 20 H 7-18 mg/dL Creatinine 1.1 0.5-1.3 mg/dL Glomerular Filtration Rate Calc 77 >90 mL/min Random Glucose 93 70-105 mg/dL Lactic Acid Level 1.6 0.8-2.5 mmol/L Total Calcium 8.1 L 8.5-10.1 mg/dL Magnesium Level 2.00 1.80-2.40 mg/dL Total Bilirubin 1.5 H 0.2-1.0 mg/dL Direct Bilirubin 0.8 H 0.0-0.3 mg/dL Aspartate Amino Transf (AST/SGOT) 98 H 10-37 U/L Alanine Aminotransferase (ALT/SGPT) 91 H 12-78 U/L Alkaline Phosphatase 141 H 50-136 U/L Ammonia 16 # 11-32 umol/L Total Protein 5.7 L 6.0-8.3 g/dL Albumin 2.0 L 3.5-5.0 g/dL Hepatitis C Antibody Reactive H Nonreactive Current Medications Medications (Trade) Dose Ordered Sig/Padmaja Route PRN Reason Start Time Stop Time Status Last Admin Dose Admin Acetaminophen (TYLenol 325MG TAB) 650 mg Q4H PRN PO MILD PAIN (1-3) 05/10/25 20:00 06/09/25 19:59 05/10/25 20:27 650 MG Acetaminophen (TYLenol 325MG TAB) 650 mg Q6H PRN PO TEMPERATURE GREATER THAN 101.5 05/10/25 20:00 06/09/25 19:59 Furosemide (LASix 20MG TAB) 20 mg DAILY PO 05/11/25 13:00 05/20/25 10:10 Heparin Sodium (Porcine) (HEParin 5,000 UNIT VIAL) 5,000 unit DAILY SQ 05/12/25 09:00 05/20/25 11:00 Lactulose (Constulose 20gm/ 30ml Udcup) 20 gm DAILY PO 05/11/25 09:00 06/10/25 08:59 Midodrine (PROAMatine 5 MG TABLET) 5 mg TID PO 05/11/25 14:00 05/19/25 11:00 05/11/25 13:41 5 MG Ondansetron HCl (zoFRAN 4MG INJ) 4 mg Q6H PRN IV NAUSEA/VOMITING 05/10/25 20:00 06/09/25 19:59 Pantoprazole Sodium (PROTonix 40MG TAB) 40 mg DAILY PO 05/11/25 09:00 06/10/25 08:59 Sodium Chloride 1,000 ml @ 75 mls/hr [id number] IV 05/10/25 20:00 06/09/25 19:59 05/11/25 09:41 75 MLS/HR Spironolactone (Aldactone 25mg) 50 mg DAILY PO 05/11/25 13:00 05/19/25 11:00 DIAGNOSTICS / RADIOLOGY: [ ] [place] [address] [address] IMAGING REPORT Signed PATIENT: NICA HEWITT MR#: [id number] : 1965 SEX: M AGE: 60 LOCATION: [facility] ORDER DT: [id number] STATUS: REG ER REPORT#: [id number] SERVICE 46 REASON: sob, tesnse ascites ORDERING PHYSICIAN: RIVERA GIL MD PROCEDURE: CXR1VW - CHEST 1VW EXAM: CR Chest, 1 View. CLINICAL HISTORY: sob, tesnse ascites COMPARISON: None provided. FINDINGS: LUNGS: The lungs show no infiltrate or other acute finding. PLEURAL SPACES: No evidence of pleural effusion or pneumothorax. MEDIASTINUM: The cardiomediastinal silhouette is within normal limits. BONES: No aggressive appearing osseous lesion seen. IMPRESSION: No acute cardiopulmonary pathology is evident. /[place] DICTATED BY: TNIY ANGUIANO Jr., MD DATE: 05/10/251919 ELECTRONICALLY SIGNED BY: TINY ANGUIANO Jr., MD DATE: 05/10/251919 ASSESSMENT: Acute decompensated liver cirrhosis with possible ascites POA Mild acute kidney injury POA Hyponatremia POA Elevated liver enzymes POA High ammonia level POA Protein calorie malnutrition POA Abdominal herniax2 POA Chronic anemia POA Chronic thrombocytopenia POA Hypertension POA Hyperlipidemia POA Anxiety disorder POA PLAN: Acute decompensated liver cirrhosis with possible ascites POA Patient is known case of liver cirrhosis with recurrent ascites, most recent par[place] was [place] [facility] [place] and 8 L of fluid has been removed Patient is currently on NPO, scheduled for paracentesis by IR today Patient did not remember what medications he takes at home, medication reconciliation not done. Patient was started on Aldactone 50 mg daily, Lasix 20 mg daily. Patient was started on midodrine5 mg t.i.d. We will follow up with the patient after paracentesis and we will send peritoneal fluid for analysis. High ammonia level POA On presentation lab showed ammonia 34 Patient is receiving lactulose 20 mg daily Today ammonia has been trended down to 16 Elevated liver enzymes POA On presentation AST 108, ALT 101, ALP 146 Hepatitis panel has been ordered Today AST down to 98, ALT down to 91, ALP down to 14 GI prophylaxis with pantoprazole 40 mg daily p.o. DVT prophylaxis with heparin 5000 units SQ daily ATTESTATION BY PHYSICIAN I have seen and examined the patient. I reviewed the documentation, medical decision making, and treatment plan as noted by the resident physician above. I agree with the findings and plan of care. LIOR MAYNARD MD, ADIL SHAH QUADRI MD May 11, 2025 16:20
[2025-05-12] VITALS (7 sets, daily range): BP systolic 91–107; BP diastolic 42–57; PULSE 65–90; RESP 19–20; TEMP 97.4–98.1; O2SAT 98
[2025-05-12 05:08] LABS: NUCLEATED RED BLOOD CELLS 0.0 % (0.0-0.19); PLATELET COUNT (AUTO) 105.0 K/uL (130-400); RED BLOOD CELL COUNT(AUTO) 3.97 MIL/uL (4.50-6.20); RED CELL DISTRIBUTION WIDTH 14.5 % (11.0-15.5); WHITE BLOOD COUNT (AUTO) 4.1 K/uL (4.8-10.8)
[2025-05-12 05:30] LABS: ASPARTATE AMINOTRANSFERASE 76.0 U/L (10-37); CREATININE 1.0 mg/dL (0.5-1.3); GLOMERULAR FILTR. RATE CALC 87.0 mL/min (>90); GLUCOSE,RANDOM 102.0 mg/dL (70-105); SODIUM SERUM 135.0 mmol/L (136-145); TOTAL PROTEIN, SERUM 4.8 g/dL (6.0-8.3); UREA NITROGEN, BLOOD 15.0 mg/dL (7-18)
--- NOTE | 2025-05-12 10:38 | PN ---
[facility] PROGRESS NOTE Date of Service: May 12, 2025 Time of Service: 10:37 SUBJECTIVE: HISTORY OF PRESENT ILLNESS: This is a 60-year-old male with past medical history of hypertension, hyperlipidemia, anxiety, liver cirrhosis secondary to alcohol use who was brought by EMS for complaints of abdominal pain and worsening abdominal distention.On further evaluation patient states he feels abdominal fullness and has not been able to eat well because he gets full and bloated easily.Patient also reports he was at [facility] 3 weeks ago and underwent a paracentesis and removed 8L of fluid .Patient reports he has some shortness of breath es pecially when he is aslep he woke up very short of breath and 4 days ago he went back to [facility] [place] but for some reason he was not able to bring his H&P he was discharged home he said so today his symptoms got worsened he decided to come to this facility because he has already been here before he said. Seen and examined patient in the ED awake,alert and coherent in no apparent respiratory distress,appears comfortable.Patient also reports recurrent abdominal hernia x2 .Patient denies fever,chills,nausea,vomiting ,chest pain,palpitation and shortness of breath.Patient last BM was today and he said it was normal. Latest vital signs temperature 98 0.2, heart rate 88, blood pressure 115/64 saturation 97% on room air. Labs: Hemoglobin 13, hematocrit 38, platelet count 126. Sodium 133, chloride 100, CO2 27, BUN 19, creatinine 1.1 GFR 77 total calcium 8.3 total bilirubin 1.8, direct bilirubin 0.9, AST 108 ALT 101, alkaline phosphatase 146, ammonia 34 albumin 2.2. Chest x-ray result revealed no acute cardiopulmonary pathology is evident. We will admit patient for further medical management. 05/11/2025: Patient was seen and evaluated bedside this morning. Patient says he has abdominal discomfort, denies chest pain, palpitations. Patient is scheduled for paracentesis by IR today. Medication reconciliation has not been done as patient lives alone and did not bring his medications while coming to ER. We will start Aldactone 50 mg daily, Lasix 20 mg daily, midodrine5 mg t.i.d. After paracentesis we will send fluid for analysis, give him albumin dose. 05/12/2025: Patient was seen and evaluated bedside this morning. Patient says that he is feeling fine, denies fevers, chills, chest pain, shortness of breath, palpitations. Paracentesis was done on 05/11/2025, 15 L fluid has been removed. Ascitic fluid analysis showed WBC 207, neutrophils 26, RBC 199. Continue Aldactone 50 mg daily, Lasix 20 mg daily, dose of midodrine has been increased to 10 mg t.i.d. as blood pressure was on the softer side. We will see how ryan ent is doing today, planning for discharge in a.m. tomorrow. REVIEW OF SYSTEMS CONSTITUTIONAL: Denies fevers, chills, or night sweats. No unintentional weight loss reported. NEUROLOGICAL: Denies headache, amaurosis fugax, motor weakness, sensory deficit, vertigo/spinning sensation, gait abnormalities, or tremors. ENT: No hearing loss, otalgia, otorrhea, rhinitis, rhinorrhea, hoarseness, or sore throat. CARDIOVASCULAR: Denies any exertional angina, dyspnea on exertion, orthopnea, paroxysmal nocturnal dyspnea, palpitations, life-threatening arrhythmias, claudication. PULMONARY: Complain of shortness of breaths Denies cough, phlegm/sputum, hemoptysis, pleuritic chest pain. SLEEP: Denies morning headaches, daytime somnolence or napping. Denies difficulty falling asleep, staying asleep, waking from sleep. Denies knowledge of snoring. GASTROINTESTINAL:complained of abdominal pain, Abdominal distention and fullness Denies any type of dysphagia to either liquids or solids. Denies nausea, vomiting, pyrosis, early satiety, diarrhea, constipation, or changes in stool consistency or caliber. Denies coffee-ground emesis, hematemesis, hematochezia, or melanotic stools. GENITOURINARY: Denies frequency, urgency, nocturia, hematuria or incontinence (Storage/Irritative symptoms.) Low urinary stream, straining to void, urinary intermittency or hesitancy, splitting of the voiding stream, terminal dribbling. ENDOCRINOLOGIC: Denies polyuria, polydipsia, polyphagia or heat/cold intolerances. HEMATOLOGIC: Denies thrombophilia/previous clots, or coagulopathy/bleeding disorders. ONCOLOGIC: Denies personal history of malignancy. DERMATOLOGIC: Denies rashes or pruritus. PSYCHIATRIC: Denies any suicidal or homicidal ideation. Denies hallucinations. PHYSICAL EXAM GENERAL APPEARANCE: The patient is awake, alert, and oriented, in no acute cardiopulmonary distress. NEUROLOGICAL: Cranial nerves II-XII grossly intact. Motor is 5/5 in bilateral upper and lower extremities proximal to distal. No sensory deficits. HEENT: Face is symmetric. Pupils are equal and reactive. Extraocular movements are intact. NECK: Supple. No JVD. No thyromegaly. No submental, submandibular, pre- /postauricular, occipital or supraclavicular lymphadenopathy. CHEST: Normal chest expansion. No Telemetry. LUNGS: Absence of any rales, rhonchi or any wheezing. CARDIOVASCULAR: Regular. S1 and S2 normal. No appreciable rubs, murmurs or gallops. ABDOMEN: Soft, nontender, and nondistended. There is no rebound, voluntary guarding, or rigidity. : Deferred. No Brasher. EXTREMITIES: Non-edematous and not cyanotic. No clubbing. Good capillary refill. SKIN: No skin breakdown. Vital Signs (last 8hr) Date Time Temp Pulse Resp B/P (MAP) Pulse Ox O2 Delivery O2 Flow Rate FiO2 05/12/25 08:00 97.3 71 19 97/56 98 Room Air 21 05/12/25 03:35 98.1 90 20 107/42 94 Room Air LABS: Laboratory: Test 05/12/25 04:51 05/11/25 11:00 05/11/25 04:11 Range/Units White Blood Count 4.1 L 4.8-10.8 K/uL Red Blood Count 3.97 L 4.50-6.20 MIL/uL Hemoglobin 12.1 L 14.0-18.0 g/dL Hematocrit 34.3 L 42-54 % Mean Corpuscular Volume 86.4 79-99 fL Mean Corpuscular Hemoglobin 30.5 27.0-33.0 pg Mean Corpuscular Hemoglobin Concent 35.3 32.0-36.0 g/dL Red Cell Distribution Width 14.5 11.0-15.5 % Platelet Count 105 L 130-400 K/uL Mean Platelet Volume 9.8 7.5-10.5 fL Nucleated Red Blood Cells 0.0 0.0-0.19 % Sodium Level 135 L 136-145 mmol/L Potassium Level 4.1 3.5-5.1 mmol/L Chloride Level 101 101-111 mmol/L Carbon Dioxide Level 27 21-32 mmol/L Blood Urea Nitrogen 15 7-18 mg/dL Creatinine 1.0 0.5-1.3 mg/dL Glomerular Filtration Rate Calc 87 >90 mL/min Random Glucose 102 70-105 mg/dL Total Calcium 7.6 L 8.5-10.1 mg/dL Total Bilirubin 1.3 H 0.2-1.0 mg/dL Aspartate Amino Transf (AST/SGOT) 76 H 10-37 U/L Alanine Aminotransferase (ALT/SGPT) 69 12-78 U/L Alkaline Phosphatase 125 50-136 U/L Total Protein 4.8 L 6.0-8.3 g/dL Albumin 2.1 L 3.5-5.0 g/dL Body Fluid Source ASCITES Body Fluid Volume 56287 mL Body Fluid Color YELLOW LT YELLOW Body Fluid Supernatant Appearance CLEAR CLEAR Body Fluid WBC 207 /cu. mm. Body Fluid RBC 199 /cu. mm. Body Fluid Neutrophils 26.0 % Body Fluid Lymphocytes 22 % Body Fluid Monocytes % 4 % Body Fluid Macrophages (%) 47 Body Fluid Other Cells (%) 1 Immature Granulocyte % (Auto) 0.5 0-1 % Neutrophils (%) (Auto) 59.5 40.0-77.0 % Lymphocytes (%) (Auto) 23.8 21.0-51.0 % Monocytes (%) (Auto) 8.8 3.0-13.0 % Eosinophils (%) (Auto) 6.7 0.0-8.0 % Basophils (%) (Auto) 0.7 0.0-5.0 % Neutrophils # (Auto) 2.6 1.8-7.7 K/uL Lymphocytes # (Auto) 1.0 1.0-4.8 K/uL Monocytes # (Auto) 0.4 0.1-1.0 K/uL Eosinophils # (Auto) 0.29 0.00-0.70 K/uL Basophils # (Auto) 0.03 0.00-0.20 K/uL Absolute Immature Granulocyte (auto 0.02 0-1 K/uL Segmented Neutrophils % 63 40-70 % Band Neutrophils % 1 0-2 % Lymphocytes % (Manual) 21 L 22-44 % Monocytes % (Manual) 6 2-9 % Eosinophils % (Manual) 5 1-6 % Differential Comment MANUAL DIFFERENTIAL Reactive Lymphocytes 4 H 0-0 % White Cell Morphology Comment See comments Platelet Morphology Comment SLIGHTLY DECREASED Red Blood Cell Morphology ANISO 1+ Prothrombin Time 13.2 H 9.6-11.6 SEC Prothromb Time International Ratio 1.28 H 0.85-1.15 Activated Partial Thromboplast Time 29.3 26.3-35.5 SEC Lactic Acid Level 1.6 0.8-2.5 mmol/L Magnesium Level 2.00 1.80-2.40 mg/dL Direct Bilirubin 0.8 H 0.0-0.3 mg/dL Ammonia 16 # 11-32 umol/L Hepatitis C Antibody Reactive H Nonreactive Current Medications Medications (Trade) Dose Ordered Sig/Padmaja Route PRN Reason Start Time Stop Time Status Last Admin Dose Admin Acetaminophen (TYLenol 325MG TAB) 650 mg Q4H PRN PO MILD PAIN (1-3) 05/10/25 20:00 06/09/25 19:59 05/11/25 19:40 650 MG Acetaminophen (TYLenol 325MG TAB) 650 mg Q6H PRN PO TEMPERATURE GREATER THAN 101.5 05/10/25 20:00 06/09/25 19:59 Furosemide (LASix 20MG TAB) 20 mg DAILY PO 05/11/25 13:00 05/20/25 10:10 05/12/25 08:35 20 MG Heparin Sodium (Porcine) (HEParin 5,000 UNIT VIAL) 5,000 unit DAILY SQ 05/12/25 09:00 05/20/25 11:00 05/12/25 08:24 5,000 UNIT Lactulose (Constulose 20gm/ 30ml Udcup) 20 gm DAILY PO 05/11/25 09:00 06/10/25 08:59 05/12/25 08:10 20 GM Midodrine (PROAMatine 5 MG TABLET) 5 mg TID PO 05/11/25 14:00 05/12/25 10:24 DC 05/12/25 08:10 5 MG Midodrine (PROAMatine 5 MG TABLET) 10 mg TID PO 05/12/25 14:00 06/11/25 13:59 Ondansetron HCl (zoFRAN 4MG INJ) 4 mg Q6H PRN IV NAUSEA/VOMITING 05/10/25 20:00 06/09/25 19:59 05/11/25 16:21 4 MG Pantoprazole Sodium (PROTonix 40MG TAB) 40 mg DAILY PO 05/11/25 09:00 06/10/25 08:59 05/12/25 08:10 40 MG Sodium Chloride 1,000 ml @ 75 mls/hr [id number] IV 05/10/25 20:00 05/11/25 22:42 DC 05/11/25 09:41 75 MLS/HR Spironolactone (Aldactone 25mg) 50 mg DAILY PO 05/11/25 13:00 05/19/25 11:00 05/12/25 08:35 50 MG DIAGNOSTICS / RADIOLOGY: [ ] [place] [address] [place] [address] IMAGING REPORT Signed PATIENT: NICA HEWITT MR#: [id number] : 1965 SEX: M AGE: 60 LOCATION: 3A ORDER 2300 STATUS: ADM IN REPORT#: [id number] SERVICE 0600 REASON: ACSITES ORDERING PHYSICIAN: MIRELLA HASKINS [employer] PROCEDURE: PARA ABD - US ABDOMINAL PARACENTESIS IR US ABDOMINAL PARACENTESIS IR REASON: ASCITES This procedure was performed by Dr. Catarina Bustamante M.D. PGY [address] Good TECHNIQUE: Paracentesis was performed with ultrasound guidance. The puncture site was selected in the Right lower quadrant and overlying skin prepped and draped in a sterile fashion. 1% Xylocaine infiltration was performed. Catheter was placed in the fluid using trocar technique. 15 Liters were removed. Fluid sample was submitted for laboratory evaluation. The patient showed no evidence of complication during the procedure. Albumin was given. Patient tolerated procedure well IMPRESSION: 1. Ultrasound-guided paracentesis. DICTATED BY: RYLEY GOOD MD DATE: 05/11/251120 ELECTRONICALLY SIGNED BY: RYLEY GOOD MD DATE: 05/11/251124 ASSESSMENT: Acute decompensated liver cirrhosis with possible ascites POA Mild acute kidney injury POA Hyponatremia POA Elevated liver enzymes POA High ammonia level POA Protein calorie malnutrition POA Abdominal herniax2 POA Chronic anemia POA Chronic thrombocytopenia POA Hypertension POA Hyperlipidemia POA Anxiety disorder POA PLAN: Acute decompensated liver cirrhosis with possible ascites POA Patient is known case of liver cirrhosis with recurrent ascites, most recent paracentesis was done at [facility] 3 weeks ago and 8 L of fluid has been removed Paracentesis was done by IR on 05/11/2025, 15 L of fluid has been removed. Patient did not remember what medications he takes at home, medication reconciliation not done. Continue on Aldactone 50 mg daily, Lasix 20 mg daily. Dose of midodrine has been increased to 10 mg t.i.d. Ascitic fluid analysis showed no SBP. High ammonia level POA On presentation lab showed ammonia 34 Patient is receiving lactulose 20 mg daily Today ammonia has been trended down to 16 Elevated liver enzymes POA On presentation AST 108, ALT 101, ALP 146 Hepatitis panel has been ordered Today AST down to 98, ALT down to 91, ALP down to 14 GI prophylaxis with pantoprazole 40 mg daily p.o. DVT prophylaxis with heparin 5000 units SQ daily ATTESTATION BY PHYSICIAN I have seen and examined the patient. I reviewed the documentation, medical decision making, and treatment plan as noted by the resident physician above. I agree with the findings and plan of care. LIOR MAYNARD MD, ADIL SHAH QUADRI MD May 12, 2025 10:37
[2025-05-12 12:06] LABS: HEPATITIS A IGM ANTIBODY Non-Reactive (Nonreactive); HEPATITIS B CORE IGM ANTIBODY Non-Reactive (Negative)
[2025-05-13 03:36] VITALS: BP 106/46; PULSE 65; RESP 16; TEMP 97.9
[2025-05-13 04:51] LABS: NUCLEATED RED BLOOD CELLS 0.0 % (0.0-0.19); PLATELET COUNT (AUTO) 99.0 K/uL (130-400); RED BLOOD CELL COUNT(AUTO) 4.02 MIL/uL (4.50-6.20); RED CELL DISTRIBUTION WIDTH 14.7 % (11.0-15.5); WHITE BLOOD COUNT (AUTO) 4.3 K/uL (4.8-10.8)
[2025-05-13 05:07] LABS: ASPARTATE AMINOTRANSFERASE 94.0 U/L (10-37); CREATININE 1.1 mg/dL (0.5-1.3); GLOMERULAR FILTR. RATE CALC 77.0 mL/min (>90); GLUCOSE,RANDOM 87.0 mg/dL (70-105); SODIUM SERUM 132.0 mmol/L (136-145); TOTAL PROTEIN, SERUM 4.8 g/dL (6.0-8.3); UREA NITROGEN, BLOOD 15.0 mg/dL (7-18)
[2025-05-13 08:00] VITALS: BP 111/61; PULSE 73; RESP 18; TEMP 97.9; O2SAT 98
--- NOTE | 2025-05-13 10:07 | NUR ---
PATIENT HAS SCHEDULED HEPARIN. PLATELETS ARE 99. NOTIFIED DR. GARRISON. PER MD WE WILL HOLD THIS DOSE OF HEPARIN.
[2025-05-13 11:21] VITALS: BP 102/47; PULSE 63; RESP 17; TEMP 98.1
[2025-05-13] MEDS ORDERED: FURO-152 PO (14:10)
[2025-05-13] MEDS ORDERED: MIDO10TA3 PO (14:10)
[2025-05-13] MEDS ORDERED: LACT10PA5 PO (14:10)
[2025-05-13] MEDS ORDERED: SPIR50TA PO (14:10)
[2025-05-13] MEDS ORDERED: PANT40TA55 PO (14:10)
--- NOTE | 2025-05-13 14:12 | DS ---
Discharge Summary Hospital Course Summary: The patient is 60-year-old male with history of hypertension, hyperlipidemia, anxiety, and alcohol related liver cirrhosis who presented with worsening abdominal distention, early satiety, and abdominal discomfort. He had a prior paracentesis3 weeks ago with8 L removed. On admission, he was seen hemodyna mically stable and denied fever, nausea, vomiting, or chest pain. Lab showed thrombocytopenia, mild hyponatremia, elevated liver enzymes, hyperbilirubinemia, low albumin, and stable kidney function. Imaging revealed no acute pulmonary pathology. He was admitted for further evaluation management of decompensated cirrhosis with ascites. IR performed a paracentesis on 05/11, [id number] L of fluid. Ascitic fluid study showed WBC 207 with 26% neutrophils, not consistent with SBP. He was started on spironolactone, furosemide, midodrine, and received albumin after the procedure. During hospitalization the patient remains stable, alert, and without respiratory distress. He reported improvement in abdominal discomfort after paracentesis and denied fevers, chills, chest pain, shortness of breath, or palpitations. His vital signs remained stable, and renal function was preserved. Diuretics and midodrine were continued with good response. On 05/13/2025 he was medically stable for discharge home with outpatient follow up for cirrhosis management and repeat paracentesis as needed. Patient was explained regarding all the red flag signs and asked to return to ED if he has any. Calculus Tutor(s): none Procedure(s): [place] [id number] [id number] IMAGING REPORT Signed PATIENT: NICA HEWITT MR#: [id number] : 1965 SEX: M AGE: 60 LOCATION: EDH ORDER 47 STATUS: REG REPORT#: [id number] SERVICE 46 REASON: sob, tesnse ascites ORDERING PHYSICIAN: RIVERA GIL MD PROCEDURE: CXR1VW - CHEST 1VW EXAM: CR Chest, 1 View. CLINICAL HISTORY: sob, tesnse ascites COMPARISON: None provided. FINDINGS: LUNGS: The lungs show no infiltrate or other acute finding. PLEURAL SPACES: No evidence of pleural effusion or pneumothorax. MEDIASTINUM: The cardiomediastinal silhouette is within normal limits. BONES: No aggressive appearing osseous lesion seen. IMPRESSION: No acute cardiopulmonary pathology is evident. /[place] DICTATED BY: TINY ANGUIANO Jr., MD DATE: 05/10/251919 ELECTRONICALLY SIGNED BY: TINY ANGUIANO Jr., MD DATE: 05/10/251919 [facility] [address] [place] [id number] IMAGING REPORT Signed PATIENT: NICA HEWITT MR#: [id number] : 1965 SEX: M AGE: 60 LOCATION: 3AH ORDER 2300 STATUS: ADM IN REPORT#: [id number] SERVICE 0600 REASON: ACSITES ORDERING PHYSICIAN: MIRELLA HASKINS INSPECTOR [employer]OR [employer]HICLES PROCEDURE: PARA ABD - US ABDOMINAL PARACENTESIS IR US ABDOMINAL PARACENTESIS IR REASON: ASCITES This procedure was performed by Dr. Catarina Bustamante M.D. PGY [address] Good TECHNIQUE: Paracentesis was performed with ultrasound guidance. The puncture site was selected in the Right lower quadrant and overlying skin prepped and draped in a sterile fashion. 1% Xylocaine infiltration was performed. Catheter was placed in the fluid using trocar technique. 15 Liters were removed. Fluid sample was submitted for laboratory evaluation. The patient showed no evidence of complication during the procedure. Albumin was given. Patient tolerated procedure well IMPRESSION: 1. Ultrasound-guided paracentesis. DICTATED BY: RYLEY GOOD MD DATE: 05/11/251120 ELECTRONICALLY SIGNED BY: RYLEY GOOD MD DATE: 05/11/251124 Assessment/Plan: ASSESSMENT: Acute decompensated liver cirrhosis with possible ascites POA Mild acute kidney injury POA Hyponatremia POA Elevated liver enzymes POA High ammonia level POA Protein calorie malnutrition POA Abdominal herniax2 POA Chronic anemia POA Chronic thrombocytopenia POA Hypertension POA Hyperlipidemia POA Anxiety disorder POA Discharge Instructions: Continue diuretics as prescribed, follow a low-sodium diet. Attend all follow ups for labs, paracentesis and follow up with Infectious Disease for chronic hepatitis-C infection Avoid alcohol, NSAIDs, and any new medications not approved by your provider. Watch for red flag signs such as severe abdominal pain, bloody vomiting, black s tools, worsening confusion, high fever, or shortness of breath and visit the ER immediately if any occur. Take spironolactone 50 mg p.o. 1 tab daily Take furosemide 20 mg p.o. 1 tab daily Take midodrine 10 mg p.o. 1 tab 3 times daily. Take pantoprazole sodium 40 mg 1 tab p.o. daily. Take lactulose 1 packet(10 g) p.o. twice daily. Follow up with your PCP in 1-2 weeks Follow-up with Infectious Disease Dr. Gee in 1-2 weeks for chronic hepatitis-C infection Home Medications: Active Scripts Lactulose (Lactulose) 10 Gram Packet, 1 PACKET PO BID for 30 Days, #60 PACKET 0 Refills Prov:BELKIS GARRISON MD 05/13/25 Pantoprazole Sodium (Protonix) 40 Mg Ectab, 1 TAB PO DAILY for 30 Days, #30 TAB 0 Refills Prov:BELKIS GARRISON MD 05/13/25 Spironolactone (Aldactone) 50 Mg Tablet, 1 TAB PO DAILY for 30 Days, #30 TAB 0 Refills Prov:BELKIS GARRISON MD 05/13/25 Furosemide (Lasix) 20 Mg Tablet, 1 TAB PO DAILY for 30 Days, #30 TAB 0 Refills Prov:BELKIS GARRISON MD 05/13/25 Midodrine HCl (Midodrine HCl) 10 Mg Tablet, 1 TAB PO TID for 30 Days, #90 TAB 0 Refills Prov:BELKIS GARRISON MD 05/13/25 New Medications: Furosemide (Lasix) 20 Mg Tablet 1 TAB PO DAILY for 30 Days, #30 TAB 0 Refills Lactulose (Lactulose) 10 Gram Packet 1 PACKET PO BID for 30 Days, #60 PACKET 0 Refills Midodrine HCl (Midodrine HCl) 10 Mg Tablet 1 TAB PO TID for 30 Days, #90 TAB 0 Refills Pantoprazole Sodium (Protonix) 40 Mg Ectab 1 TAB PO DAILY for 30 Days, #30 TAB 0 Refills Spironolactone (Aldactone) 50 Mg Tablet 1 TAB PO DAILY for 30 Days, #30 TAB 0 Refills Time spent arranging discharge: 1-30 minutes ATTESTATION BY PHYSICIAN I have seen and examined the patient. I reviewed the documentation, medical decision making, and treatment plan as noted by the resident physician above. I agree with the findings and plan of care. LIOR MAYNARD MD, ADIL SHAH QUADRI MD May 13, 2025 14:11
--- NOTE | 2025-05-13 15:48 | NUR ---
PATIENT IS DISCHARGED. IV TAKEN OUT WITH CATHETER INTACT. EDUCATION MATERIAL PROVIDED TO PATIENT WELL FOLLOW UP APPOINTMENT. PATIENT TAKEN DOWN BY OLIVE GROWER
== END 2025-05-13 15:48 | disposition home or self-care (01) | DRG 433 ==
LOC: EDH 16:40 → EDHIP 19:42 → 3AH 21:19
PROVIDERS: ADMIT Internal Medicine; ATTEND Internal Medicine
PROC: 0W9G3ZZ Drainage of Peritoneal Cavity, Percutaneous Approach (ICD-10-PCS; principal; 2025-05-11)
DX: K70.31 Alcoholic cirrhosis of liver with ascites (principal); E46 Unspecified protein-calorie malnutrition; N17.9 Acute kidney failure, unspecified; D69.6 Thrombocytopenia, unspecified; I10 Essential (primary) hypertension; D64.9 Anemia, unspecified; E87.1 Hypo-osmolality and hyponatremia; F41.9 Anxiety disorder, unspecified; F17.200 Nicotine dependence, unspecified, uncomplicated; E78.5 Hyperlipidemia, unspecified; K46.9 Unspecified abdominal hernia without obstruction or gangrene; Z79.899 Other long term (current) drug therapy; Z82.49 Family history of ischemic heart disease and other diseases of the circulatory system; Z83.3 Family history of diabetes mellitus; Z68.20 Body mass index [BMI] 20.0-20.9, adult
CPT/HCPCS: 36415; 49083; 71045; 80048; 80053; 80074; 80076; 82140; 83605; 83735; 85025; 85027; 85610; 85730; 87071; 87205; 87522; 89051; 96365; 99285; C1729; G0378; J1644; J2405; P9046

== ENCOUNTER 2025-06-15 10:14 | Emergency (ER) | payer OTHER ==
[~2025-06-15] VITALS: Ht 172.7 cm; Wt 63.5 kg
[~2025-06-15 10:14] MED LIST changes: +FURO40TA5 PO; +LACT10PA5 PO; +MIDO10TA3 PO; -PANT20TA PO; -POLY17PO4 PO; +SPIR50TA PO
--- NOTE | 2025-06-15 11:39 | ERN ---
General Chief Complaint: Abdominal Pain Stated Complaint: NEEDS PARACENTESIS Time Seen by MD: 10:17 Source: patient History of Present Illness Initial Comments Mr.De Norm Mcmanus, 60M came to ER with chief complaint of severe abdominal distention since 2 weeks. He reports progressive abdominal distention since 2 weeks due to ascites, could not tolerate eating or drinking, associated with abdominal pain shortness of breath. He reports getting his abdominal fluid drained every 2 weeks and his last visit was 15 days back. He reports chronic dizziness and currently on meclizine. He has history of hepatitis-C and alcohol intake. No fever or altered mental status. Currently on spironolactone 100 mg, furosemide 40 mg, midodrine 10 mg and meclizine. Timing/Duration: constant Severity: moderate Associated Symptoms: headaches, malaise, shortness of breath Allergies: Coded Allergies: No Known Drug Allergies (Unverified Allergy, Unknown, 12/29/21) Home Meds Active Scripts Furosemide (Furosemide) 40 Mg Tablet, 1 TAB PO DAILY for 5 Days, #5 TAB 0 Refills Prov:LEON CASTLE 05/19/25 Lactulose (Lactulose) 10 Gram Packet, 1 PACKET PO BID for 30 Days, #60 PACKET 0 Refills Prov:BELKIS GARRISON MD 05/13/25 Spironolactone (Aldactone) 50 Mg Tablet, 1 TAB PO DAILY for 30 Days, #30 TAB 0 Refills Prov:BELKIS GARRISON MD 05/13/25 Midodrine HCl (Midodrine HCl) 10 Mg Tablet, 1 TAB PO TID for 30 Days, #90 TAB 0 Refills Prov:BELKIS GARRISON MD 05/13/25 Past Medical History Past Medical History: Anxiety, Hypertension, Liver Disease, Other Medical History Other: HEPATITIS C, HERNIA, CHRONIC BACK PAIN, CIRRHOSIS Past Surgical History: Other Surgical History Other: RUE TENDON REPAIR, HERNIA Social History Social History: Smokers, ETOH Respiratory: (+) short of breath Cardiovascular: (+) dyspnea on exertion Gastrointestinal/Abdominal: (+) nausea, (+) abdominal pain, (+) abdominal distention Physical Exam General Appearance: (+) moderate distress Orientation: (+) alert, (+) oriented x 3 Eye: bilateral eye normal inspection Ear, Nose, Throat: (+) hearing grossly normal, (+) normal ENT inspection, (+) moist mucous membraine, (+) normal pharynx Neck: (+) normal inspection, (+) supple Respiratory: (+) chest non-tender, (+) lungs clear, (+) well ventilated Heart: (+) regular, (+) no gallop Vascular: (+) no edema Gastrointestinal: (+) distended, (+) tender, (+) hernia Genital: (+) deferred Rectal: (+) deferred Neurologic/Psychiatric: (+) normal speech, (+) no motor defecits, (+) no sensory deficits Skin: (+) warm/dry Results Laboratory and Microbiology Lab and Micro Result Laboratory Tests Test 06/15/25 11:22 White Blood Count 4.9 K/uL (4.8-10.8) Red Blood Count 4.40 MIL/uL (4.50-6.20) L Hemoglobin 13.5 g/dL (14.0-18.0) L Hematocrit 40.3 % (42-54) L Mean Corpuscular Volume 91.6 fL (79-99) Mean Corpuscular Hemoglobin 30.7 pg (27.0-33.0) Mean Corpuscular Hemoglobin Concent 33.5 g/dL (32.0-36.0) Red Cell Distribution Width 15.0 % (11.0-15.5) Platelet Count 90 K/uL (130-400) L Mean Platelet Volume 10.7 fL (7.5-10.5) H Nucleated Red Blood Cells 0.0 % (0.0-0.19) Prothrombin Time 13.0 SEC (9.6-11.6) H Prothromb Time International Ratio 1.25 (0.85-1.15) H Activated Partial Thromboplast Time 30.2 SEC (26.3-35.5) Sodium Level 134 mmol/L (136-145) L Potassium Level 4.4 mmol/L (3.5-5.1) Chloride Level 100 mmol/L (101-111) L Carbon Dioxide Level 29 mmol/L (21-32) Blood Urea Nitrogen 17 mg/dL (7-18) Creatinine 1.0 mg/dL (0.5-1.3) Glomerular Filtration Rate Calc 87 mL/min (>90) Random Glucose 99 mg/dL (70-105) Total Calcium 8.2 mg/dL (8.5-10.1) L Total Bilirubin 1.8 mg/dL (0.2-1.0) H Aspartate Amino Transf (AST/SGOT) 136 U/L (10-37) H Alanine Aminotransferase (ALT/SGPT) 97 U/L (12-78) H Alkaline Phosphatase 197 U/L (50-136) H Total Protein 6.4 g/dL (6.0-8.3) Albumin 2.7 g/dL (3.5-5.0) L MDM CC: Tense ascites requiring paracentesis Historian: Patient Comorbidities: Advanced liver disease status post tips procedure Historian: Patient Limitations by social determinants of health: None Differential diagnosis: Tense ascites Vital signs are stable Lab work including CBC metabolic panel and coags are all stable. Patient received paracentesis twice weekly. H IR consulted, performed a paracentesis. 12 L drained. Patient received albumin in the ER On re-evaluation has stable vital signs he reports feeling much better. P.o. tolerant nontoxic. We will DC. ED Course Orders Procedure Category Date Status Time Cbc Without LAB 06/15/25 Complete Differential 10:44 Comprehensive LAB 06/15/25 Complete Metabolic Panel 10:44 Prothrombin Time With LAB 06/15/25 Complete INR 10:44 Partial LAB 06/15/25 Complete Thromboplastin Time 11:47 Us Abdominal US 06/15/25 Resulted Paracentesis Ir 12:05 Albumin Human 25% PHA 06/15/25 Complete ([place]) 15:30 Albumin Human 25% PHA 06/15/25 Complete ([place]) 15:30 Current Medications Medications (Trade) Dose Ordered Sig/Padmaja Route PRN Reason Start Time Stop Time Status Last Admin Dose Admin Albumin Human 100 ml @ 0 mls/hr AD ONCE IV 06/15/25 15:30 06/15/25 15:07 DC Albumin Human 100 ml @ 0 mls/hr AD ONCE IV 06/15/25 15:30 06/15/25 15:31 DC 06/15/25 15:47 Vital Signs Date Time Temp Pulse Resp B/P (MAP) Pulse Ox O2 Delivery O2 Flow Rate FiO2 06/15/25 15:51 97.9 70 16 107/63 100 Room Air* 0 06/15/25 13:21 97.9 71 16 122/79 98 Room Air* 0 06/15/25 10:18 97.9 79 16 115/74 97 Room Air* 0 21 06/15/25 10:15 97.9 79 16 115/74 97 Room Air 0 DX & DISP Disposition: Discharge Departure Impression: Primary Impression: Ascites of liver Additional Impression: S/P abdominal paracentesis Condition: Stable Additional Instructions: You had a paracentesis with 12 L removed today. You received albumin through th e IV. Continue with all your home medications. Return to the emergency department as needed. Referrals: SELF,REFERRAL (PCP) MAKENNA JUAREZ MD Jun 15, 2025 11:39 ABRAHAN LIGHT DO Jun 15, 2025 16:01
[2025-06-15 11:41] LABS: NUCLEATED RED BLOOD CELLS 0.0 % (0.0-0.19); PLATELET COUNT (AUTO) 90.0 K/uL (130-400); RED BLOOD CELL COUNT(AUTO) 4.4 MIL/uL (4.50-6.20); RED CELL DISTRIBUTION WIDTH 15.0 % (11.0-15.5); WHITE BLOOD COUNT (AUTO) 4.9 K/uL (4.8-10.8)
[2025-06-15 11:46] LABS: INR 1.25 (0.85-1.15)
[2025-06-15 12:01] LABS: ASPARTATE AMINOTRANSFERASE 136.0 U/L (10-37); CREATININE 1.0 mg/dL (0.5-1.3); GLOMERULAR FILTR. RATE CALC 87.0 mL/min (>90); GLUCOSE,RANDOM 99.0 mg/dL (70-105); SODIUM SERUM 134.0 mmol/L (136-145); TOTAL PROTEIN, SERUM 6.4 g/dL (6.0-8.3); UREA NITROGEN, BLOOD 17.0 mg/dL (7-18)
--- NOTE | 2025-06-15 13:54 | NUR ---
PATIENT TRANSPORTED TO PARACENTESIS BY OWNER NATHAN.
--- NOTE | 2025-06-15 15:05 | NUR ---
POST PARACENTISIS: 12L REMOVED. BP 93/63. HEART RATE 74. PENDING ALBUMIN ADMINISTRATION.
--- NOTE | 2025-06-15 15:10 | NUR ---
U/S GD PARACENTESIS PROCEDURE PERFORMED BY DR GOOD. PUNCTURE SITE RLQ AND PATIENT TOLERATED PROCEDURE WELL. TOTAL REMOVED 12.0 LITERS OF YELLOW CLOUDY ASCITES FLUID. END OF PROCEDURE AT 1450. CATHETER REMOVED AND DRESSING APPLIED. NO BLEEDING NOTED. REPORT GIVEN TO LUKE SANDY AND PATIENT TRANSPORTED TO ED VIA WHEELCHAIR. AAO X3 WITH NO C/O PAIN.
[2025-06-15] MEDS ORDERED: ALBUMIN HUMAN 25% 100 ML IV ONE (15:30)
--- NOTE | 2025-06-15 15:39 | NUR ---
PATIENT RETURNED TO ER BED BY METAL FABRICATING SUPERVISOR PEREZ.
[2025-06-15] MEDS: ALBUMIN HUMAN 25% 100 ML IV ONE (15:47)
[2025-06-15 15:51] VITALS: BP 107/63; PULSE 70; RESP 16; TEMP 97.9; O2SAT 100
--- NOTE | 2025-06-15 16:12 | HMCIMG ---
EXAM: Ultrasound-guided abdominal paracentesis. CLINICAL HISTORY: Ascites requiring therapeutic paracentesis. TECHNIQUE: Real-time ultrasound examination of the abdomen was performed to localize ascitic fluid. Under ultrasound guidance and standard sterile technique, a paracentesis catheter was advanced into a right upper quadrant fluid pocket. COMPARISON: CT abdomen and pelvis without contrast dated 05/29/2025. FINDINGS: Preprocedural sonography demonstrated ascites, with an adequate fluid pocket identified in the right upper quadrant for safe access. No solid organ lesion or focal vascular abnormality was seen within the planned needle trajectory. Needle and catheter placement into the ascitic fluid collection were confirmed sonographically. A total of approximately 12 liters of clear/yellow ascitic fluid was removed. No immediate sonographic evidence of procedure-related complication was identified. IMPRESSION: * Successful ultrasound-guided right upper quadrant paracentesis with removal of approximately 12 liters of ascitic fluid. * No immediate sonographic evidence of procedure-related complication. /[place]
== END 2025-06-15 16:23 | disposition home or self-care (01) ==
LOC: EDH 10:14
DX: R18.8 Other ascites (principal); R42 Dizziness and giddiness; R06.02 Shortness of breath; I10 Essential (primary) hypertension; F41.9 Anxiety disorder, unspecified; G89.29 Other chronic pain; F17.200 Nicotine dependence, unspecified, uncomplicated; Z79.899 Other long term (current) drug therapy; Z86.19 Personal history of other infectious and parasitic diseases; Z98.890 Other specified postprocedural states
CPT/HCPCS: 49083; 99285; 96365; 80053; 85027; 85610; 85730; 36415; P9046; C1729